=== PATIENT | female | born 1990 | race Caucasian/White ===

== ENCOUNTER → 2017-04-12 | Outpatient (CLI) | payer BC ==
[~2017-04-12] MED LIST: BIRTH CONTROL PO
--- NOTE | 2017-04-12 17:22 | Diagnostic Imaging Report ---
INDICATION: Anatomic survey. TECHNIQUE: Multiple real-time grayscale images were obtained over the gravid uterus. COMPARISON: None FINDINGS: A single live intrauterine fetus is seen measuring at 21 weeks 2 days in size. Amniotic fluid is qualitatively normal. Placenta is anterior with no evidence of previa. heart rate is 144 beats per minute. Cervical length is 4.4 cm. survey showed no detectable abnormalities, although a good four-chamber heart view could not be obtained due to position. Biometrical measurements are as follows: Biparietal 5.09 cm, age 21 weeks 3 days. Head circumference 18.69 cm, age 21 weeks 1 days. Abdominal circumference 16.56 cm, age 21 weeks 5 days. Femur length 3.43 cm, age 20 weeks 6 days. Sonographic estimate age: 21 weeks 2 days. Sonographic estimated date of delivery: 08/21/2017. Estimated Weight: 408 gm (+/- 60 gm). LMP percentile: 86%. heart rate: 144 beats per minute. number: 1 of 1. IMPRESSION: Single live intrauterine fetus measuring 21 weeks 2 days in size, as described above. There was no detectable abnormality, although a good four-chamber heart view was not obtainable due to position. Consider followup as clinically warranted. Dictated by: Dictated on workstation # [id number]
== END ==
LOC: RAD 16:06
PROVIDERS: ATTEND Obstetrics & Gynecology
DX: Z36.87 Encounter for antenatal screening for uncertain dates (principal); Z3A.21 21 weeks gestation of pregnancy
CPT/HCPCS: 76805

== ENCOUNTER 2017-08-28 12:38 | Inpatient (IN) | payer BC ==
[2017-08-28] VITALS (50 sets, daily range): BP systolic 113–172; BP diastolic 62–104
[~2017-08-28] VITALS: Ht 165.1 cm; Wt 81.6 kg
[2017-08-28 13:18] LABS: BILIRUBIN,URINE NEGATIVE (NEGATIVE); CLARITY,URINE SLIGHTLY CLOUDY; COLOR,URINE YELLOW; GLUCOSE, URINE (UA) NEGATIVE (NEGATIVE); KETONES,URINE NEGATIVE (NEGATIVE); LEUKOCYTE ESTERASE ,URINE 2+ (NEGATIVE); NITRITE,URINE NEGATIVE (NEGATIVE); PH,URINE 6.5 (5-9); PROTEIN,URINE NEGATIVE (NEGATIVE); UROBILINOGEN,URINE NORMAL (NORMAL)
[2017-08-28 13:25] LABS: BASOPHILS % (AUTO) 0 % (0-10); EOSINOPHILS % (AUTO) 0 % (0-10); HEMATOCRIT 34 % (35-52); HEMOGLOBIN 12.5 G/DL (11.5-16.0); LYMPHOCYTES % (AUTO) 16 % (12-44); MEAN CORPUSCULAR HEMOGLOBIN 33 PG (25-34); MEAN CORPUSCULAR HGB CONC 36 G/DL (32-36); MEAN CORPUSCULAR VOLUME 90 FL (80-99); MEAN PLATELET VOLUME 11.7 FL (7.4-10.4); MONOCYTES # (AUTO) 0.7 X 10^3 (0.0-1.0); MONOCYTES % (AUTO) 5 % (0-12); NEUTROPHILS # (AUTO) 9.4 X 10^3 (1.8-7.8); NEUTROPHILS % (AUTO) 78 % (42-75); PLATELET COUNT 162 10^3/uL (130-400); RED BLOOD COUNT 3.81 10^6/uL (4.35-5.85); RED CELL DISTRIBUTION WIDTH 12.2 % (10.0-14.5)
[2017-08-28 13:42] LABS: URINE CREATININE FOR RATIO 32 MG/DL (30-125); URINE PROTEIN FOR RATIO ONLY < 6 MG/DL (6-12)
[2017-08-28 13:44] LABS: ALANINE AMINOTRANSFERASE 8 U/L (0-55); ALBUMIN 3.3 GM/DL (3.2-4.5); ALKALINE PHOSPHATASE 173 U/L (40-136); BILIRUBIN,TOTAL 0.7 MG/DL (0.1-1.0); BUN/CREATININE RATIO 10; CALCIUM 9.1 MG/DL (8.5-10.1); CARBON DIOXIDE 20 MMOL/L (21-32); CHLORIDE 107 MMOL/L (98-107); GFR ESTIMATED > 60; POTASSIUM 4.1 MMOL/L (3.6-5.0); SODIUM 137 MMOL/L (135-145); TOTAL PROTEIN 6.2 GM/DL (6.4-8.2); URIC ACID 6.3 MG/DL (2.6-7.2)
[2017-08-28 13:48] LABS: GLUCOSE 60 MG/DL (70-105)
[2017-08-28 13:58] LABS: BACTERIA,URINE NEGATIVE /HPF
[2017-08-28] MEDS ORDERED: OXYTOCIN/NORMAL SALINE 500 ML IV SCH (14:36)
[2017-08-28] MEDS: D5 LR IV SOLUTION 1,000 ML IV SCH ×2 (14:50→19:20)
[2017-08-28] MEDS ORDERED: PREN1TAB86 PO (16:12)
[2017-08-28] MEDS ORDERED: TERBUTALINE INJ 1 MG/ML (BRETHINE) AMP ONE (17:31)
[2017-08-28] MEDS: LACTATED RINGERS 1,000 ML IV SCH (17:52)
[2017-08-28] MEDS ORDERED: SUFENTA 0.6MCG/ML BUPIVA 0.125 100 ML ONE ×2 (17:56→18:31)
[2017-08-28] MEDS ORDERED: ONDANSETRON 4 MG/2 ML (SDV) Z0FRAN IVP PRN (18:00)
[2017-08-28] MEDS ORDERED: BUPIVACAINE 0.25% 30 ML (SENSORCAINE) VIAL ONE (18:30)
[2017-08-28] MEDS ORDERED: LIDOCAINE PF 2% 5 ML (XYLOCAINE) VIAL ONE (18:30)
[2017-08-28] MEDS ORDERED: fentaNYL INJECTION 100 MCG/2 ML AMP ONE (18:31)
[2017-08-28] MEDS ORDERED: TERBUTALINE INJ 1 MG/ML (BRETHINE) AMP SC ONE (18:31)
[2017-08-28] MEDS ORDERED: NALOXONE 0.4 MG/ML 1 ML (NARCAN) VIAL IV PRN (19:00)
[2017-08-28] MEDS: EPIDURAL (SUFENTA 0.6MCG/ML BUPIVA 0.125%) 100 ML BAG EPI PRN (19:00)
[2017-08-28] MEDS ORDERED: ONDANSETRON 4 MG/2 ML (SDV) Z0FRAN IV PRN (19:00)
[2017-08-28] MEDS ORDERED: diphenhydrAMINE 50 MG/ML INJ (BENADRYL) IV PRN (19:00)
[2017-08-29] VITALS (35 sets, daily range): BP systolic 117–157; BP diastolic 67–99
[2017-08-29] MEDS: EPIDURAL (SUFENTA 0.6MCG/ML BUPIVA 0.125%) 100 ML BAG EPI PRN ×2 (01:10→05:57)
[2017-08-29] MEDS: D5 LR IV SOLUTION 1,000 ML IV SCH ×3 (03:10→22:55)
[2017-08-29] MEDS ORDERED: ceFAZolin 2 GM IV Premixed 50 ML ONE (05:54)
[2017-08-29] MEDS ORDERED: METOCLOPRAMIDE INJ 10 MG/2 ML (REGLAN) ONE (05:54)
[2017-08-29] MEDS ORDERED: FAMOTIDINE 20MG/2ML IV (PEPCID) ONE (05:54)
[2017-08-29] MEDS ORDERED: CITRIC ACID/SOB CIT (BICITRA) 30 ML UDC ONE (05:54)
[2017-08-29] MEDS: LACTATED RINGERS 1,000 ML IV SCH ×2 (06:02→07:57)
[2017-08-29] MEDS ORDERED: TERBUTALINE INJ 1 MG/ML (BRETHINE) AMP ONE (06:07)
[2017-08-29] MEDS ORDERED: LIDOCAINE PF 2% 5 ML (XYLOCAINE) VIAL ONE (06:18)
[2017-08-29] MEDS ORDERED: fentaNYL INJECTION 100 MCG/2 ML AMP ONE (06:18)
[2017-08-29] MEDS ORDERED: BUPIVACAINE 0.5% 30 ML (SENSORCAINE) VIAL ONE (06:18)
--- NOTE | 2017-08-29 06:18 | History & Physical-OB ---
OB - Chief Complaint & HPI Date/Time Date of Admission: Date of Admission: Aug 28, 2017 at 2:36 pm Time Seen by Provider: 15:30 Chief Complaint/History OB-Reason for Admission/Chief: Induction of Labor Hx : 1 Hx Para: 0 Expected Date of Delivery: Aug 27, 2017 Gestational Age in Weeks: 40 Gestational Age in Days: 2 Other reason for admission: GHTN, Postdates Admission Nurse Assessment Rev: Yes History of Labs O pos Antibody neg RI RPR NR HBsAg NR HIV NR GC neg GBS neg Allergies and Home Medications Allergies Coded Allergies: No Known Drug Allergies (Unverified , 02/08/11) Home Medications Vit W-Ca,Fe,FA(<1 mg) 1 Each Tablet, 1 TAB PO DAILY, (Reported) OB - History Hx of Present Care: Yes Ultrasounds: Normal mid trimester US Obstetrical Complications: None Medical Complications: None Obstetrical History Hx : 1 Hx Para: 0 Delivery History Adverse Rxn to Tranfusion: No Patient Past Medical History n/a Social History/Family History Recent Infectious Disease Expo: No Alcohol Use: Denies Use Recreational Drug Use: No OB - Admission Exam Physical Exam Vitals: Vital Signs 08/29/17 08/29/17 08/29/17 00:00 03:00 04:45 Temp 99.6 Pulse 89 Resp 20 B/P (MAP) 156/79 (104) Pulse Ox 99 O2 Delivery Room Air O2 Flow Rate 15.00 HEENT: NCAT Heart: Rhythm Normal Lungs: Clear Abdomen: Gravid Extremities: Normal Reflexes: Normal Cervical Dilatation: 2cm Effacement: 75% Station: -1 Membranes: Intact Heart Rate: 130's Accelerations: Accelerations Present Decelerations: No Decelerations Short Term Variability: Present Machinery Dismantler Variability: Average (6-25) Contractions on Admission: 6-10 Minutes Apart Intensity: Moderate Labs Laboratory Tests Test 08/28/17 13:10 08/28/17 13:20 Range/Units Urine Color YELLOW Urine Clarity SLIGHTLY CLOUDY Urine pH 6.5 5-9 Urine Specific [place] 1.005 L 1.016-1.022 Urine Protein < 6 L 6-12 MG/DL Urine Glucose (UA) NEGATIVE NEGATIVE Urine Ketones NEGATIVE NEGATIVE Urine Nitrite NEGATIVE NEGATIVE Urine Bilirubin NEGATIVE NEGATIVE Urine Urobilinogen NORMAL NORMAL MG/DL Urine Leukocyte Esterase 2+ H NEGATIVE Urine RBC (Auto) 4+ H NEGATIVE Urine RBC NONE /HPF Urine WBC 5-10 H /HPF Urine Squamous Epithelial Cells 10-20 /HPF Urine Crystals NONE /LPF Urine Bacteria NEGATIVE /HPF Urine Casts NONE /LPF Urine Mucus NEGATIVE /LPF Urine Culture Indicated YES Urine Creatinine 32 30-125 MG/DL Urine Protein/Creatinine Ratio White Blood Count 12.0 H 4.3-11.0 10^3/uL Red Blood Count 3.81 L 4.35-5.85 10^6/uL Hemoglobin 12.5 11.5-16.0 G/DL Hematocrit 34 L 35-52 % Mean Corpuscular Volume 90 80-99 FL Mean Corpuscular Hemoglobin 33 25-34 PG Mean Corpuscular Hemoglobin Concent 36 32-36 G/DL Red Cell Distribution Width 12.2 10.0-14.5 % Platelet Count 162 130-400 10^3/uL Mean Platelet Volume 11.7 H 7.4-10.4 FL Neutrophils (%) (Auto) 78 H 42-75 % Lymphocytes (%) (Auto) 16 12-44 % Monocytes (%) (Auto) 5 0-12 % Eosinophils (%) (Auto) 0 0-10 % Basophils (%) (Auto) 0 0-10 % Neutrophils # (Auto) 9.4 H 1.8-7.8 X 10^3 Lymphocytes # (Auto) 2.0 1.0-4.0 X 10^3 Monocytes # (Auto) 0.7 0.0-1.0 X 10^3 Eosinophils # (Auto) 0.0 0.0-0.3 10^3/uL Basophils # (Auto) 0.0 0.0-0.1 10^3/uL Sodium Level 137 135-145 MMOL/L Potassium Level 4.1 3.6-5.0 MMOL/L Chloride Level 107 98-107 MMOL/L Carbon Dioxide Level 20 L 21-32 MMOL/L Anion Gap 10 5-14 MMOL/L Blood Urea Nitrogen 8 7-18 MG/DL Creatinine 0.80 0.60-1.30 MG/DL Estimat Glomerular Filtration Rate > 60 BUN/Creatinine Ratio 10 Glucose Level 60 *L 70-105 MG/DL Uric Acid 6.3 2.6-7.2 MG/DL Calcium Level 9.1 8.5-10.1 MG/DL Total Bilirubin 0.7 0.1-1.0 MG/DL Aspartate Amino Transf (AST/SGOT) 13 5-34 U/L Alanine Aminotransferase (ALT/SGPT) 8 0-55 U/L Alkaline Phosphatase 173 H 40-136 U/L Total Protein 6.2 L 6.4-8.2 GM/DL Albumin 3.3 3.2-4.5 GM/DL OB - Assessment/Plan/Diagnosis Assessment Assessment: induction of labor Plan Plan: Induction Induction Method: per Pitocin Protocol Other Plan Plan for induction with Pitocin and possibly cervical ripen overnight if not a good response, or AROM later if good labor pattern ensues. Anticipate NVD. Discharge Diagnosis Diagnosis: 27 yo @ 40.1 GHTN-transient Postdates GBS neg HUMBERTO FLORES DO Aug 29, 2017 6:18 am
[2017-08-29] MEDS ORDERED: LACTATED RINGERS 1,000 ML IV PRN (06:21)
--- NOTE | 2017-08-29 06:23 | Progress Note-Standard ---
Standard Progress Note Progress Notes/Assess & Plan Date Seen by Provider: Aug 29, 2017 Time Seen by Provider: 06:05 Progress/Assessment & Plan Notified by RN that patient had been starting to have variable decels. Progressed to 5 cm, but variability had been worsening and now has begun having repetitive variable decels some into the 50s-60. Also a 6 min decel yesterday afternoon into the 40s at which time AROM and FSE was placed. I discussed with the patient intolerance of labor, and that proceeding with for delivery urgently would be the safest course to proceed with at this point due to her being remote from delivery. Risk discussed with patient, , and family. Will proceed with KELLY. HUMBERTO FLORES DO Aug 29, 2017 6:23 am
[2017-08-29] MEDS ORDERED: CITRIC ACID/SOB CIT (BICITRA) 30 ML UDC PO ONE (06:30)
[2017-08-29] MEDS ORDERED: METOCLOPRAMIDE INJ 10 MG/2 ML (REGLAN) IV ONE (06:30)
[2017-08-29] MEDS ORDERED: FAMOTIDINE 20MG/2ML IV (PEPCID) IV ONE (06:30)
[2017-08-29] MEDS ORDERED: OXYTOCIN/NORMAL SALINE 500 ML IV SCH (06:33)
[2017-08-29] MEDS ORDERED: MEASLES,MUMPS,RUBELLA 1 EA INJ SC SCH (06:45)
[2017-08-29] MEDS ORDERED: IBUPROFEN 600 MG (MOTRIN) TAB PO SCH (06:45)
[2017-08-29] MEDS ORDERED: ONDANSETRON 4 MG/2 ML (SDV) Z0FRAN IVP PRN (06:45)
[2017-08-29] MEDS ORDERED: TETANUS,DIPTH,PERTUSS P/F (BOOSTRIX) 0.5 ML VIAL IM SCH (06:45)
[2017-08-29] MEDS ORDERED: PHENYLEPHRINE 100 MCG/ML 10 ML (ANESTHESIA) SYR ONE (07:07)
[2017-08-29] MEDS ORDERED: OXYTOCIN/NORMAL SALINE 1,000 ML IV ONE (07:13)
[2017-08-29] MEDS ORDERED: MIDAZOLAM 2 MG/2 ML (VERSED) VIAL ONE (07:15)
[2017-08-29] MEDS ORDERED: ceFAZolin 2 GM IV Premixed 50 ML IV ONE (07:15)
[2017-08-29] MEDS ORDERED: INFLUENZA TRIvalent 2017-2018 0.5 ML/45 MCG SYR IM ONE (08:15)
[2017-08-29] MEDS: HYDROmorphone (DILAUDID) 2 MG/ML VIAL IVP PRN ×2 (08:31→10:54)
[2017-08-29] MEDS ORDERED: CARBOPROST (HEMABATE) 250 MCG/ML AMP IM ONE (08:38)
[2017-08-29] MEDS ORDERED: CARBOPROST (HEMABATE) 250 MCG/ML AMP IM NR (08:45)
[2017-08-29 12:06] LABS: BASOPHILS % (AUTO) 0 % (0-10); EOSINOPHILS % (AUTO) 0 % (0-10); HEMATOCRIT 26 % (35-52); HEMOGLOBIN 9.2 G/DL (11.5-16.0); LYMPHOCYTES # (AUTO) 1.3 X 10^3 (1.0-4.0); LYMPHOCYTES % (AUTO) 6 % (12-44); MEAN CORPUSCULAR HEMOGLOBIN 33 PG (25-34); MEAN CORPUSCULAR HGB CONC 36 G/DL (32-36); MEAN CORPUSCULAR VOLUME 92 FL (80-99); MEAN PLATELET VOLUME 11.4 FL (7.4-10.4); MONOCYTES % (AUTO) 5 % (0-12); NEUTROPHILS # (AUTO) 19.7 X 10^3 (1.8-7.8); NEUTROPHILS % (AUTO) 89 % (42-75); PLATELET COUNT 136 10^3/uL (130-400); RED CELL DISTRIBUTION WIDTH 11.9 % (10.0-14.5); WHITE BLOOD COUNT 22.1 10^3/uL (4.3-11.0)
[2017-08-29] MEDS: KETOROLAC 30 MG/ML VIAL IVP SCH ×2 (13:29→20:10)
--- NOTE | 2017-08-29 14:16 | OPERATIVE REPORT ---
DATE OF SERVICE: 08/28/2017 PREOPERATIVE DIAGNOSES: 1. A 27-year-old G1, P0 at 40 weeks and 1 day gestation. 2. intolerance of labor. 3. Remote from delivery. POSTOPERATIVE DIAGNOSES: 1. A 27-year-old G1, P0 at 40 weeks and 1 day gestation. 2. intolerance of labor. 3. Remote from delivery. PROCEDURE: Primary low transverse section. SURGEON: Dr. Fernando Morton. ANESTHESIA: Epidural, which was bolused. ESTIMATED BLOOD LOSS: 1500 mL. URINE OUTPUT: 1000 mL cleared at the end of the procedure. FLUIDS: 2400 mL of lactated Ringer solution. FINDINGS: A live male , weight pending with Apgars of 5 and 9. Grossly normal appearing. uterus, bilateral fallopian tubes and ovaries. SPECIMEN SENT: Placenta. INDICATIONS FOR PROCEDURE: This 27-year-old female was admitted yesterday with questionable blood pressures in the 150s/90s that were labile would drop to the 130s/80s at times. Due to postdates, a decision was made to proceed with induction. The method of induction was selected at that point due to the early afternoon was Pitocin augmentation, which the patient did start yennifer fairly regularly too. She had an episode of tachy systole followed by a 4 to 5 minute prolonged deceleration down into the 60s, which came back up to baseline. After this Pitocin was stopped, AROM was performed and internal scalp lead was placed. The patient received an epidural shortly thereafter as her blood pressures began to creep up a little bit higher in the 160s/90s. Pitocin was then begun again once reassurance was noted due to the patient being remote from delivery and because of recurrent heart racing concerns. RECOMMENDATION: Was made to proceed with delivery. At that time, she was 5 cm, 80% effaced, -1 station. Risk of the procedure was discussed with the patient in detail, with her family and her present. Risk of bleeding, infection, damage to surrounding structures, including, but not limited to bowel, bladder, ureter, kidneys, risk for possible blood transfusion, risk for possible loss of fertility and subsequent procedures were all discussed with the patient as well as risks of the infant. After all questions were answered, consent was obtained, the patient was taken to the operating room. Once in the operating room, epidural anesthesia was bolused and found to be adequate. She was placed in supine position with a leftward tilt, prepped and draped in normal sterile fashion. Pfannenstiel skin incision was made with a knife and carried to underlying fascia using Bovie cautery. The fascial incision extended laterally using Bovie cautery. Superior aspect of the fascial incision was then grasped with Chon clamps and opened, dissected off the rectus muscle. The inferior aspect of the fascial incision was then grasped with Chon clamps, tented upward and dissected off the underlying rectus muscles. The rectus muscle was dissected down the midline using Mack scissors, which exposed the peritoneum, which I entered bluntly and extended using blunt traction. An Cesar ring retractor was placed in the peritoneal incision, which offers excellent lateral sidewall retraction. There is a darkening of the serosa in the lower uterine segment suspicious for possible abruption or hematoma formation in the lower uterine segment. I make an incision in the vesicouterine peritoneum and bluntly dissect the serosa off of the lower uterine segment, the bladder flap. I proceeded with myotomy until membranes are visualized at which point, I ruptured membranes through my incision using digital dissection and extend the incision using Mack scissors laterally and superiorly. The was found in the vertex presentation. At this point, the infant's head is well engaged approximately zero maybe even +1 station. The is occiput posterior. I placed my hand beneath the infant's head and able to elevate it up out of the incision. There was some struggle with doing this, but I was able to with slow movement of the head, able to get it out of the pelvis and up to the incision. Once the infant's headed up to the incision, it was delivered through the incision without difficulty and the nares and oropharynx were bulb suctioned. Anterior, posterior shoulder was delivered. was then brought to the operative field with the cord was duly clamped and cut and the infant is handed off to waiting Dr. Renteria who was in attendance for delivery. Cord blood was collected. A 3-vessel cord with intact placenta was delivered spontaneously. Thereafter IV Pitocin was initiated to facilitate uterine contraction. Uterine fundus was firm by manual massage. The uterus was then exteriorized and cleared of all endometrial clots and debris. There is extension of the lateral aspect of the uterine incision around to the posterior aspect of the uterus laterally through the posterior leaflet of the broad ligament on the right side even. I proceeded with closing the uterine incision using 0 Vicryl suture in running locked fashion. This closure has to extend laterally and even posteriorly on the patient's right side due to the extension; however, there is no active bleeding noted from the incision after the running locked suture was placed. A second layer of imbricating 0 Monocryl was placed and excellent hemostasis is noted after doing this. I then placed a separate layer of 3-0 Vicryl suture on the posterior aspect of the extension that I had the access by lifting the uterus up and going into the posterior cul-de-sac. This is believed to be a cervical extension, but it is closed using 3-0 Vicryl suture in running locked fashion after which no active bleeding noted from this; however, I did copiously irrigate the posterior cul-de-sac using normal saline and then placed Surgicel over this incision to ensure postoperative hemostasis. I then placed the uterus back in the pelvis and copiously irrigated the pelvis using normal saline. No active bleeding noted from the anterior aspect of the incision. I then placed intercede over my low transverse incision and removed the Cesar ring retractor and then closed the peritoneum using 3-0 Vicryl stitch running fashion. The rectus muscle was reapproximated using 3-0 Vicryl suture in interrupted fascia. The fascia was reapproximated using 0 Vicryl suture in running fashion. The subcutaneous tissue reapproximated using 3-0 plain in interrupted subcutaneous stitch and skin reapproximated using 4-0 Monocryl running subcuticular. Dermabond was applied to incision. Sterile dressing with adhesive white tape. The patient tolerated the procedure well and sent to recovery area in stable condition with lap and sponge counts were correct at the end of the procedure. Instrument counts were correct as well. Two grams of Ancef were given preoperatively for infection prophylaxis, 1 gram is going to be given 8 hours postoperatively due to increased blood loss of over a liter. The patient tolerated the procedure well and sent to recovery in stable condition. Job ID: [id number] DocumentID: [id number] Dictated Date: 08/29/2017 07:46:55 Pharmacy Cashier Date: 08/29/2017 14:15:16 Dictated By: DO KELY DAMICO
[2017-08-29] MEDS: HYDROcodone/APAP 5 MG/325 MG (LORTAB) TAB PO PRN ×2 (14:53→20:11)
[2017-08-29] MEDS ORDERED: ceFAZolin INJECTION 1,000 MG in NS (IVPB) 50 ML IV ONE (16:00)
[2017-08-29 18:53] LABS: MEAN PLATELET VOLUME 11.2 FL (7.4-10.4); RED BLOOD COUNT 2.44 10^6/uL (4.35-5.85); WHITE BLOOD COUNT 19.3 10^3/uL (4.3-11.0)
[2017-08-29] MEDS: CATHETER FLUSH 10 ML SYR IV SCH ×4 (20:11→22:56)
[2017-08-29] MEDS: DOCUSATE SODIUM 100 MG (COLACE) CAP PO SCH ×2 (20:11→22:51)
[2017-08-29] MEDS ORDERED: IBUP-1773 PO (22:21)
[2017-08-29] MEDS ORDERED: ACHD5005 PO (22:21)
[2017-08-29] MEDS ORDERED: FERR325T18 PO (22:21)
[2017-08-29] MEDS ORDERED: DOCU100C37 PO (22:21)
--- NOTE | 2017-08-29 22:22 | Discharge Inst-Women's Service ---
Discharge Inst-Women's Serv Depart Medication/Instructions New, Converted or Re-Newed RX: RX on Chart Consults/Follow Up Additional Follow Up: Yes Orders/Referrals Dr. Morton in 7-10 days and in 6 weeks Activity Activity: Activity as Tolerated Driving Instructions: No Driving for 1 Week NO SMOKING: NO SMOKING Nothing Inside Vagina: No Douching, No Tonsina, No Tampons Diet Discharge Diet: No Restrictions Symptoms to Report to : Bleeding Excessive, Pain Increased, Fever Over 101 Degrees F, Vaginal Bleeding Increase, Questions/Concerns For Any Problems or Questions: Contact Your Physician Skin/Wound Care Infection Signs and Symptoms: Increased Redness, Foul Odor of Wound, Increased Drainage, Skin Itchy or Has a Rash, Increased Swelling, Temperature Above 101 F Operative Area Clean and Dry: Keep Incision Clean/Dry Stitches/Reid/Dermabond: Dermabond, Care of Stitches Bathing Instructions: HUMBERTO Sheth DO Aug 29, 2017 10:22 pm
[2017-08-30] VITALS: BP 128/82
[2017-08-30] MEDS: KETOROLAC 30 MG/ML VIAL IVP SCH (01:43)
[2017-08-30] MEDS: CATHETER FLUSH 10 ML SYR IV SCH (01:43)
[2017-08-30] MEDS: HYDROcodone/APAP 5 MG/325 MG (LORTAB) TAB PO PRN ×3 (01:43→18:33)
[2017-08-30 04:35] VITALS: BP 129/82
[2017-08-30 06:02] LABS: BASOPHILS % (AUTO) 0 % (0-10); EOSINOPHILS % (AUTO) 0 % (0-10); HEMATOCRIT 22 % (35-52); HEMOGLOBIN 7.5 G/DL (11.5-16.0); LYMPHOCYTES % (AUTO) 12 % (12-44); MEAN CORPUSCULAR HEMOGLOBIN 33 PG (25-34); MEAN CORPUSCULAR HGB CONC 35 G/DL (32-36); MEAN CORPUSCULAR VOLUME 94 FL (80-99); MEAN PLATELET VOLUME 11.5 FL (7.4-10.4); MONOCYTES # (AUTO) 0.6 X 10^3 (0.0-1.0); MONOCYTES % (AUTO) 4 % (0-12); NEUTROPHILS # (AUTO) 14.3 X 10^3 (1.8-7.8); NEUTROPHILS % (AUTO) 84 % (42-75); PLATELET COUNT 114 10^3/uL (130-400); RED BLOOD COUNT 2.31 10^6/uL (4.35-5.85); RED CELL DISTRIBUTION WIDTH 12.2 % (10.0-14.5)
--- NOTE | 2017-08-30 07:27 | Anesthesia-Regional Post-Op ---
Regional Patient Condition Mental Status: Alert, Oriented x3 Circulation: Same as Pre-Op Headache: Absent Sensation: Full Recovery Motor Block: Absent Post Op Complications Complications None Follow Up Care/Instructions Patient Instructions None needed. Anesthesia/Patient Condition Patient is doing well, no complaints, stable vital signs, no apparent adverse anesthesia problems. No complications reported per nursing. TIM SYED CRNA Aug 30, 2017 07:27
[2017-08-30] MEDS: DOCUSATE SODIUM 100 MG (COLACE) CAP PO SCH ×2 (07:40→21:03)
[2017-08-30] MEDS: IBUPROFEN 600 MG (MOTRIN) TAB PO SCH ×3 (07:40→22:31)
[2017-08-30] MEDS: FERROUS SULF 325 MG (IRON) TAB PO SCH ×3 (07:41→21:03)
[2017-08-30 07:42] VITALS: BP 135/87
--- NOTE | 2017-08-30 08:48 | Postpartum Progress Note ---
Note Note Day # 1 Subjective: Patient is without complaints. Ambulating, voiding. Tolerating a regular diet without nausea or vomiting. Normal lochia. Pain is well controlled with oral pain medications. Objective: Vital Sign - Last 24 Hours 08/29/17 08/29/17 08/29/17 08/29/17 09:00 09:15 09:30 11:00 Temp 100.8 99.4 100.3 99.4 Pulse 120 118 110 107 Resp 20 18 18 18 B/P (MAP) 126/92 (103) 134/84 (101) 131/74 (93) 138/79 (98) Pulse Ox 96 96 97 95 O2 Delivery Room Air Room Air Room Air Room Air 08/29/17 08/29/17 08/29/17 08/29/17 11:45 14:30 16:30 20:00 Temp 99.7 98.9 98.3 99.6 Pulse 108 117 105 119 Resp 18 18 18 18 B/P (MAP) 138/82 (100) 117/73 (88) 128/72 (90) 129/86 (100) Pulse Ox 96 97 98 98 O2 Delivery Room Air Room Air Room Air Room Air 08/30/17 08/30/17 08/30/17 00:00 04:35 07:42 Temp 97.9 97.2 97.9 Pulse 102 98 104 Resp 18 18 20 B/P (MAP) 128/82 (97) 129/82 (98) 135/87 (103) Pulse Ox 99 98 97 O2 Delivery Room Air Room Air Room Air Intake and Output 08/29/17 08/29/17 08/30/17 14:59 22:59 06:59 Intake Total 500 ml 1500 ml 600 ml Output Total 1260 ml 1225 ml 1800 ml Balance -760 ml 275 ml -1200 ml Laboratory Tests Test 08/29/17 11:59 08/29/17 18:45 08/30/17 05:10 Range/Units White Blood Count 22.1 H 19.3 H 17.0 H 4.3-11.0 10^3/uL Red Blood Count 2.80 L 2.44 L 2.31 L 4.35-5.85 10^6/uL Hemoglobin 9.2 #L 8.0 L 7.5 L 11.5-16.0 G/DL Hematocrit 26 L 23 L 22 L 35-52 % Mean Corpuscular Volume 92 92 94 80-99 FL Mean Corpuscular Hemoglobin 33 33 33 25-34 PG Mean Corpuscular Hemoglobin Concent 36 36 35 32-36 G/DL Red Cell Distribution Width 11.9 12.0 12.2 10.0-14.5 % Platelet Count 136 128 L 114 L 130-400 10^3/uL Mean Platelet Volume 11.4 H 11.2 H 11.5 H 7.4-10.4 FL Neutrophils (%) (Auto) 89 H 84 H 42-75 % Lymphocytes (%) (Auto) 6 L 12 12-44 % Monocytes (%) (Auto) 5 4 0-12 % Eosinophils (%) (Auto) 0 0 0-10 % Basophils (%) (Auto) 0 0 0-10 % Neutrophils # (Auto) 19.7 H 14.3 H 1.8-7.8 X 10^3 Lymphocytes # (Auto) 1.3 2.0 1.0-4.0 X 10^3 Monocytes # (Auto) 1.0 0.6 0.0-1.0 X 10^3 Eosinophils # (Auto) 0.0 0.0 0.0-0.3 10^3/uL Basophils # (Auto) 0.0 0.0 0.0-0.1 10^3/uL Physical Exam: General - Alert and oriented, no apparent distress Abdomen - Soft, appropriately tender to palpation, non-distended, fundus firm at umbilicus Extremities - no edema, negative Barbra's bilaterally Incision - c/d/i Assessment: POD 1 PLTCS - with uterine incision avulsion involving bilateral uterine arteries Acute blood loss anemia Plan: Routine care. Encourage breast feeding. Encourage ambulation. Ferrous sulfate supplementation. Plan for discharge tomorrow if stable Vitals - Labs Vital Signs - I&O Vital Signs Date Time Temp Pulse Resp B/P (MAP) Pulse Ox O2 Delivery O2 Flow Rate FiO2 08/30/17 07:42 97.9 104 20 135/87 (103) 97 Room Air 08/30/17 04:35 97.2 98 18 129/82 (98) 98 Room Air 08/30/17 00:00 97.9 102 18 128/82 (97) 99 Room Air 08/29/17 20:00 99.6 119 18 129/86 (100) 98 Room Air 08/29/17 16:30 98.3 105 18 128/72 (90) 98 Room Air 08/29/17 14:30 98.9 117 18 117/73 (88) 97 Room Air 08/29/17 11:45 99.7 108 18 138/82 (100) 96 Room Air 08/29/17 11:00 99.4 107 18 138/79 (98) 95 Room Air 08/29/17 09:30 100.3 110 18 131/74 (93) 97 Room Air 08/29/17 09:15 99.4 118 18 134/84 (101) 96 Room Air 08/29/17 09:00 100.8 120 20 126/92 (103) 96 Room Air I & O 08/30/17 06:59 Intake Total 2600 ml Output Total 4285 ml Balance -1685 ml Labs Laboratory Tests 08/29/17 11:59: White Blood Count 22.1H, Red Blood Count 2.80L, Hemoglobin 9.2#L, Hematocrit 26L , Mean Corpuscular Volume 92, Mean Corpuscular Hemoglobin 33, Mean Corpuscular Hemoglobin Concent 36, Red Cell Distribution Width 11.9, Platelet Count 136, Mean Platelet Volume 11.4H, Neutrophils (%) (Auto) 89H, Lymphocytes (%) (Auto) 6L, Monocytes (%) (Auto) 5, Eosinophils (%) (Auto) 0, Basophils (%) (Auto) 0, Neutrophils # (Auto) 19.7H, Lymphocytes # (Auto) 1.3, Monocytes # (Auto) 1.0, Eosinophils # (Auto) 0.0, Basophils # (Auto) 0.0 08/29/17 18:45: White Blood Count 19.3H, Red Blood Count 2.44L, Hemoglobin 8.0L, Hematocrit 23L , Mean Corpuscular Volume 92, Mean Corpuscular Hemoglobin 33, Mean Corpuscular Hemoglobin Concent 36, Red Cell Distribution Width 12.0, Platelet Count 128L, Mean Platelet Volume 11.2H 08/30/17 05:10: White Blood Count 17.0H, Red Blood Count 2.31L, Hemoglobin 7.5L, Hematocrit 22L , Mean Corpuscular Volume 94, Mean Corpuscular Hemoglobin 33, Mean Corpuscular Hemoglobin Concent 35, Red Cell Distribution Width 12.2, Platelet Count 114L, Mean Platelet Volume 11.5H, Neutrophils (%) (Auto) 84H, Lymphocytes (%) (Auto) 12, Monocytes (%) (Auto) 4, Eosinophils (%) (Auto) 0, Basophils (%) (Auto) 0, Neutrophils # (Auto) 14.3H, Lymphocytes # (Auto) 2.0, Monocytes # (Auto) 0.6, Eosinophils # (Auto) 0.0, Basophils # (Auto) 0.0 Microbiology 08/28/17 Urine Culture - Preliminary, HUMBERTO Looney DO Aug 30, 2017 8:48 am
[2017-08-30 12:04] VITALS: BP 125/80
[2017-08-30 16:19] VITALS: BP 132/92
[2017-08-30 22:00] VITALS: BP 134/91
[2017-08-31] MEDS: HYDROcodone/APAP 5 MG/325 MG (LORTAB) TAB PO PRN ×2 (01:56→13:18)
[2017-08-31 02:00] VITALS: BP 124/84
[2017-08-31] MEDS: IBUPROFEN 600 MG (MOTRIN) TAB PO SCH ×2 (05:36→12:18)
[2017-08-31] MEDS: CATHETER FLUSH 10 ML SYR IV SCH (05:36)
[2017-08-31 06:08] LABS: BASOPHILS % (AUTO) 0 % (0-10); EOSINOPHILS # (AUTO) 0.1 10^3/uL (0.0-0.3); EOSINOPHILS % (AUTO) 1 % (0-10); LYMPHOCYTES # (AUTO) 2.7 X 10^3 (1.0-4.0); LYMPHOCYTES % (AUTO) 17 % (12-44); MEAN CORPUSCULAR HEMOGLOBIN 32 PG (25-34); MEAN CORPUSCULAR HGB CONC 34 G/DL (32-36); MEAN CORPUSCULAR VOLUME 94 FL (80-99); MEAN PLATELET VOLUME 11.1 FL (7.4-10.4); MONOCYTES # (AUTO) 0.7 X 10^3 (0.0-1.0); MONOCYTES % (AUTO) 5 % (0-12); NEUTROPHILS # (AUTO) 12.2 X 10^3 (1.8-7.8); NEUTROPHILS % (AUTO) 78 % (42-75); PLATELET COUNT 144 10^3/uL (130-400); RED BLOOD COUNT 2.16 10^6/uL (4.35-5.85); RED CELL DISTRIBUTION WIDTH 12.4 % (10.0-14.5); WHITE BLOOD COUNT 15.7 10^3/uL (4.3-11.0)
[2017-08-31 06:20] LABS: HEMATOCRIT 21 % (35-52)
[2017-08-31 08:45] VITALS: BP 124/78
[2017-08-31] MEDS: DOCUSATE SODIUM 100 MG (COLACE) CAP PO SCH (08:50)
[2017-08-31] MEDS: FERROUS SULF 325 MG (IRON) TAB PO SCH ×2 (08:50→13:18)
--- NOTE | 2017-08-31 08:51 | Postpartum Progress Note ---
Note Note Day # 2 Subjective: Patient is without complaints. Ambulating, voiding. Tolerating a regular diet without nausea or vomiting. Normal lochia. Pain is well controlled with oral pain medications. . Denies lightheadedness or dizzyness. Objective: Vital Sign - Last 24 Hours 08/30/17 08/30/17 08/30/17 08/31/17 12:04 16:19 22:00 02:00 Temp 97.4 98.1 97.1 97.2 Pulse 104 119 99 94 Resp B/P (MAP) 125/80 (95) 132/92 (105) 134/91 (105) 124/84 (97) Pulse Ox 97 99 97 98 O2 Delivery Room Air Room Air Room Air Room Air Intake and Output 08/30/17 08/30/17 08/31/17 15:00 23:00 07:00 Intake Total 2250 ml Output Total 2800 ml Balance -550 ml Laboratory Tests Test 08/31/17 05:50 Range/Units White Blood Count 15.7 H 4.3-11.0 10^3/uL Red Blood Count 2.16 L 4.35-5.85 10^6/uL Hemoglobin 7.0 L 11.5-16.0 G/DL Hematocrit 21 L 35-52 % Mean Corpuscular Volume 94 80-99 FL Mean Corpuscular Hemoglobin 32 25-34 PG Mean Corpuscular Hemoglobin Concent 34 32-36 G/DL Red Cell Distribution Width 12.4 10.0-14.5 % Platelet Count 144 130-400 10^3/uL Mean Platelet Volume 11.1 H 7.4-10.4 FL Neutrophils (%) (Auto) 78 H 42-75 % Lymphocytes (%) (Auto) 17 12-44 % Monocytes (%) (Auto) 5 0-12 % Eosinophils (%) (Auto) 1 0-10 % Basophils (%) (Auto) 0 0-10 % Neutrophils # (Auto) 12.2 H 1.8-7.8 X 10^3 Lymphocytes # (Auto) 2.7 1.0-4.0 X 10^3 Monocytes # (Auto) 0.7 0.0-1.0 X 10^3 Eosinophils # (Auto) 0.1 0.0-0.3 10^3/uL Basophils # (Auto) 0.0 0.0-0.1 10^3/uL Physical Exam: General - Alert and oriented, no apparent distress Abdomen - Soft, appropriately tender to palpation, non-distended, fundus firm at umbilicus Extremities - no edema, negative Barbra's bilaterally Incision- c/d/i Assessment: POD 2 PLTCS - with uterine incision avulsion involving bilateral uterine arteries Acute blood loss anemia Plan: Routine care. Encourage breast feeding. Encourage ambulation. Ferrous sulfate supplementation. Transfusing one unit PRBC Plan for discharge today after blood transfusion if patient continues to do well Vitals - Labs Vital Signs - I&O Vital Signs Date Time Temp Pulse Resp B/P (MAP) Pulse Ox O2 Delivery O2 Flow Rate FiO2 08/31/17 02:00 97.2 94 18 124/84 (97) 98 Room Air 08/30/17 22:00 97.1 99 18 134/91 (105) 97 Room Air 08/30/17 16:19 98.1 119 18 132/92 (105) 99 Room Air 08/30/17 12:04 97.4 104 18 125/80 (95) 97 Room Air I & O 08/31/17 07:00 Intake Total 2250 ml Output Total 2800 ml Balance -550 ml Labs Laboratory Tests 08/31/17 05:50: White Blood Count 15.7H, Red Blood Count 2.16L, Hemoglobin 7.0L, Hematocrit 21L , Mean Corpuscular Volume 94, Mean Corpuscular Hemoglobin 32, Mean Corpuscular Hemoglobin Concent 34, Red Cell Distribution Width 12.4, Platelet Count 144, Mean Platelet Volume 11.1H, Neutrophils (%) (Auto) 78H, Lymphocytes (%) (Auto) 17, Monocytes (%) (Auto) 5, Eosinophils (%) (Auto) 1, Basophils (%) (Auto) 0, Neutrophils # (Auto) 12.2H, Lymphocytes # (Auto) 2.7, Monocytes # (Auto) 0.7, Eosinophils # (Auto) 0.1, Basophils # (Auto) 0.0 Microbiology 08/28/17 Urine Culture - Final, Complete HUMBERTO FLORES DO Aug 31, 2017 8:51 am
[2017-08-31] MEDS ORDERED: NS IV 500 ML 500 ML ONE (09:46)
[2017-08-31] MEDS ORDERED: NS IV 500 ML 500 ML IV SCH (10:00)
[2017-08-31 10:17] VITALS: BP 124/78
[2017-08-31 10:32] VITALS: BP 120/81
[2017-08-31 12:10] VITALS: BP 119/78
[2017-08-31 14:50] LABS: HEMOGLOBIN 8.5 G/DL (11.5-16.0)
--- NOTE | 2017-09-06 08:51 | Physician Query Clarification ---
PQ-Accidental Op Laceration Admission/Discharge Admission Date: Aug 28, 2017 at 14:36 Discharge Date: Aug 31, 2017 at 17:40 Operative Report: Uterine incision avulsion with bilateral uterine arteries Question: Should this Uterine incision avulsion with bilateral uterine arteries be classified as: Please document a response below. PHYSICIAN RESPONSE Classified as: Integral to the procedure Explanation of clincal finding Should read uterine incision extension, no evulsion possibly rehab tech error In responding to this query, please exercise your independent professional judgment. The purpose of this communication is to more accurately reflect the complexity of your patients condition. The fact that a question is asked does not imply that any particular answer is desired or expected. Thank you for your timely response to this clarification. Requestors name: [ ] Phone # [ ] THIS PHYSICIAN QUERY FORM IS A PERMANENT PART OF THE MEDICAL RECORD NASREEN HUERTA Sep 06, 2017 08:51 HUMBERTO FLORES DO Sep 06, 2017 18:48
--- NOTE | 2017-09-06 15:36 | Physician Query Clarification ---
PQ-Accidental Op Laceration Admission/Discharge Admission Date: Aug 28, 2017 at 14:36 Discharge Date: Aug 31, 2017 at 17:40 Operative Report: uterine incision avulsion involving bilateral uterine arteries Question: Should this tear/injury/puncture be classified as: Please document a response below. In responding to this query, please exercise your independent professional judgment. The purpose of this communication is to more accurately reflect the complexity of your patients condition. The fact that a question is asked does not imply that any particular answer is desired or expected. Thank you for your timely response to this clarification. Requestors name: [ ] Phone # [ ] THIS PHYSICIAN QUERY FORM IS A PERMANENT PART OF THE MEDICAL RECORD NASREEN HUERTA Sep 06, 2017 15:36
== END 2017-08-31 17:40 | disposition home or self-care (01) | DRG 765 ==
LOC: WSo 12:38 → LDRP 12:39 → WSo 14:36 → LDRP 14:36
PROVIDERS: ADMIT Obstetrics & Gynecology; ATTEND Obstetrics & Gynecology
PROC: 10D00Z1 Extraction of Products of Conception, Low, Open Approach (ICD-10-PCS; principal; 2017-08-28)
DX: O48.0 Post-term pregnancy (principal); O13.3 Gestational [pregnancy-induced] hypertension without significant proteinuria, third trimester; O76 Abnormality in fetal heart rate and rhythm complicating labor and delivery; O99.03 Anemia complicating the puerperium; D62 Acute posthemorrhagic anemia; Z3A.40 40 weeks gestation of pregnancy; Z37.0 Single live birth
CPT/HCPCS: 36415; 80053; 81000; 82570; 84156; 84550; 85014; 85018; 85025; 85027; 86850; 86900; 86901; 86920; 87088; 88307; 94664; 99212

== ENCOUNTER → 2019-04-05 | Outpatient (CLI) | payer BC ==
[~2019-04-05] MED LIST changes: +ACHD5005 PO; +DOCU100C37 PO; +FERR325T18 PO; +IBUP-1773 PO; +PREN1TAB86 PO
--- NOTE | 2019-04-05 17:08 | Diagnostic Imaging Report ---
INDICATION: Undergoing anatomical assessment during normal . TECHNIQUE: Multiple real-time grayscale images were obtained over the gravid uterus. COMPARISON: None. FINDINGS: A single viable intrauterine , currently in a cephalic presentation. Normal amount of amniotic fluid appears to be present. Placenta is posterior and without evidence for previa. anatomical assessment demonstrates unremarkable appearance about the kidneys, bladder, stomach, intracranial structures, four-chamber heart, three-vessel cord, and cord insertion site, as well as spine. Cervical length is approximately 3.5 cm. Ovaries are not visualized, likely owing to the current gestational status. Biometrical measurements are as follows: Biparietal 4.62 cm, age 20 weeks 0 days. Head circumference 17.98 cm, age 20 weeks 3 days. Abdominal circumference 15.31 cm, age 20 weeks 4 days. Femur length 3.43 cm, age 20 weeks 6 days. Sonographic estimate age: 20 weeks 4 days. Sonographic estimated date of delivery: 08/19/2019. Estimated Weight: 364 gm (+/- 53 gm). LMP percentile: 31%. heart rate: 135 beats per minute. number: 1 of 1. IMPRESSION: 1. Single viable intrauterine , currently in a cephalic presentation. Sonographic estimated age at 20 weeks 4 days for an estimated date of delivery of August 19, 2019. No abnormalities are suggested at this time. Dictated by: Dictated on workstation # [id number]
== END ==
LOC: RAD 15:14
PROVIDERS: ATTEND Nurse Practitioner Women's Health
DX: Z34.92 Encounter for supervision of normal pregnancy, unspecified, second trimester (principal); Z3A.20 20 weeks gestation of pregnancy
CPT/HCPCS: 76805

== ENCOUNTER 2019-06-29 11:09 | Observation (INO) | payer BC ==
[~2019-06-29] VITALS: Ht 165.1 cm; Wt 69.0 kg
[2019-06-29] VITALS (16 sets, daily range): BP systolic 84–112; BP diastolic 50–69
--- NOTE | 2019-06-29 11:09 | NUR ---
ANGELES WHITE presented to unit via AMB from HOME, accompanied by SPOUSE, with c/o PELVIC PRESSURE AND VAGINAL DISCHARGE. ANGELES WHITE weighed, gowned, voided, and to bed. EFHM and TOCO applied, VS taken. ANGELES WHITE oriented to bed controls, call light, TV, heat, and A/C controls.
--- NOTE | 2019-06-29 11:30 | NUR ---
CARE ASSUMED OF THIS PT BY FILIPE EUCEDA.
--- NOTE | 2019-06-29 11:40 | NUR ---
DR. BARTLETT CALLED TO CHECK ON PT'S ARRIVAL. UPDATE AND OVERVIEW OF PT'S COMPLAINT.
--- NOTE | 2019-06-29 11:54 | NUR ---
AMNIO SWAB NEGATIVE. SVE BY FILIPE EUCEDA. CERVIX ADMITS 1 FINGER AND APPEARS TO BE 100% EFFACED AND SOFT. MEMBRANES PALPATED AT CERVICAL OS BUT NOT PROTRUDING.
[2019-06-29 11:57] LABS: BILIRUBIN,URINE NEGATIVE (NEGATIVE); CLARITY,URINE CLEAR; COLOR,URINE YELLOW; GLUCOSE, URINE (UA) NEGATIVE (NEGATIVE); KETONES,URINE NEGATIVE (NEGATIVE); LEUKOCYTE ESTERASE ,URINE TRACE (NEGATIVE); NITRITE,URINE NEGATIVE (NEGATIVE); PROTEIN,URINE NEGATIVE (NEGATIVE)
--- NOTE | 2019-06-29 12:02 | NUR ---
DR. BARTLETT NOTIFIED OF CERVICAL EXAM. ORDERS TO CONTINUE TO MONITOR FOR ANOTHER HOUR AND WILL COME TO SEE PT.
[2019-06-29 12:21] LABS: BACTERIA,URINE FEW /HPF
--- NOTE | 2019-06-29 12:40 | NUR ---
MESSAGE LEFT FOR DR. BARTLETT TO RETURN CALL. PT KENNY Q 7 MIN/70-100 SEC DURATION/MILD TO PALPATION.FHR 135 WITH MOD VARIABILITY AND + ACCELS.
--- NOTE | 2019-06-29 13:00 | NUR ---
CALLED DR. BARTLETT AGAIN SHE WAS COMING OFF OF THE ELEVATOR.
--- NOTE | 2019-06-29 13:03 | NUR ---
DR. BARTLETT TO ROOM. TALKING WITH PT AND SPOUSE ABOUT PLAN OF CARE. ORDERS RECEIVED.
[2019-06-29] MEDS ORDERED: NIFEdipine 10 MG CAPS (WOMEN'S SERVICES ONLY!!!) PO NR (13:15)
[2019-06-29] MEDS ORDERED: AMPICILLIN FOR IV USE 2,000 MG in WATER (STERILE) FOR INJECTION 14.8 ML IV NR (13:15)
[2019-06-29] MEDS ORDERED: LACTATED RINGERS 500 ML IV SCH (13:15)
--- NOTE | 2019-06-29 13:19 | History & Physical-OB ---
OB - Chief Complaint & HPI Date/Time Date of Admission: Date of Admission: Date seen by a Provider: Jun 29, 2019 Time Seen by a Provider: 13:15 Chief Complaint/History OB-Reason for Admission/Chief: Labor Hx : 2 Hx Para: 1 Expected Date of Delivery: Aug 17, 2019 Gestational Age in Weeks: 33 Gestational Age in Days: 0 Other reason for admission: This is a 29 year old at 33 weeks gestation who presented with complaint of pelvic pressure and brownish vaginal discharge. She had called the office yesterday stating that she had had been in [place] and had noticed an increase in lower pelvic pressure. She does not think that this is labor. she states this has been increased since 06/26. She also told the RN she had vaginal spotting yesterday. However, she now described an increase in discharge with a brownish tint. She states that the pressure has not stopped but has not increased either. No leakage of fluid, no bleeding, no change in movements. states that she has had increase in low back pain and has been unable to sleep due to this. After evaluation, RN noted that she is having irregular contractions every 4-7 minutes. these palpate mild to moderate. However, her cervix is completely effaced with a cervical dilation of 1-2 cm. With brownish discharge. She does not have history of labor. she does have history of previous CS for FTP . Admission Nurse Assessment Rev: Yes History of Labs O+/- VDRL NR HbSAg - HIV - Rub I Allergies and Home Medications Allergies Coded Allergies: No Known Drug Allergies (Unverified , 02/08/11) Home Medications Vit W-Ca,Fe,FA(<1 mg) 1 Each Tablet, 1 TAB PO DAILY, (Reported) Patient Home Medication List Home Medication List Reviewed: Yes OB - History Hx of Present Care: Yes Ultrasounds: Normal mid trimester US Obstetrical Complications: None Medical Complications: None Information Induced Hypertension: No Maternal Gestational Diabetes: No Hemorrhage: No Obstetrical History Hx : 2 Hx Para: 1 Hx Termination: No Hx Total # of Abortions (Spona: 0 Hx Ectopic : No Hx Complication: No Hx Induced Hypertens: No Hx Maternal Gestational Diabet: No Hx Hemorrhage: No Delivery History Hx Dystocia: Yes Hx Section: Yes Adverse Rxn to Tranfusion: No Patient Past Medical History n/a Social History/Family History HIV/AIDS: No Recent Infectious Disease Expo: No Sexually Transmitted Disease: No Alcohol Use: Denies Use Recreational Drug Use: No 2nd Hand Smoke Exposure: No Immunizations Hepatitis A: No Hepatitis B: No Date of Influenza Vaccine: Jun 05, 2019 Rubella: immune RPR/VDRL: Negative GBS Status: Unknown HBsAG: Negative OB - Admission Exam Physical Exam Vitals: Vital Signs 06/29/19 06/29/19 11:30 12:05 Temp 36.6 Pulse 81 Resp 18 B/P (MAP) 110/68 (82) Pulse Ox 99 O2 Delivery Room Air Heart: Rhythm Normal Lungs: Clear Abdomen: Gravid Extremities: Normal Reflexes: Normal Cervical Dilatation: 1cm Effacement: 0% Station: -2 Membranes: Intact Heart Rate: 140's Accelerations: Accelerations Present Decelerations: No Decelerations Short Term Variability: Present 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 Variability: Average (6-25) Contractions on Admission: 6-10 Minutes Apart Labs Laboratory Tests Test 06/29/19 11:30 Range/Units Urine Color YELLOW Urine Clarity CLEAR Urine pH 7.0 5-9 Urine Specific [place] 1.020 1.016-1.022 Urine Protein NEGATIVE NEGATIVE Urine Glucose (UA) NEGATIVE NEGATIVE Urine Ketones NEGATIVE NEGATIVE Urine Nitrite NEGATIVE NEGATIVE Urine Bilirubin NEGATIVE NEGATIVE Urine Urobilinogen 1.0 < = 1.0 MG/DL Urine Leukocyte Esterase TRACE NEGATIVE Urine RBC (Auto) 2+ H NEGATIVE Urine RBC NONE /HPF Urine WBC 5-10 H /HPF Urine Squamous Epithelial Cells 2-5 /HPF Urine Crystals NONE /LPF Urine Bacteria FEW H /HPF Urine Casts NONE /LPF Urine Mucus NEGATIVE /LPF Urine Culture Indicated YES OB - Assessment/Plan/Diagnosis Assessment Assessment: IUP - , labor Admission Dx labor previous section Admission Status: Observation Reason for Inpatient Admission: Tocolysis Plan Plan: Other (Admit for tocolysis (procardia); betamethasone and ampicillin for GBS prophylaxis. Will monitor for sign and symptoms of contractions. Will discontinue tocolysis after second dose of betamethasone. ) VIKAS BARTLETT DO Jun 29, 2019 13:19
--- NOTE | 2019-06-29 13:23 | NUR ---
1000 CC LR STARTED IV IN RIGHT WRIST WITH A #18G INTRACATH TRA W/O RATE X500CC. BLOOD OBTAINED FOR LABS PRIOR TO INITIATING FLUIDS. SITE CLEAR.
[2019-06-29] MEDS ORDERED: diphenhydrAMINE 25 MG TAB (BENADRYL) PO PRN (13:45)
[2019-06-29] MEDS ORDERED: ACETAMINOPHEN 500 MG TAB (TYLENOL) PO PRN (13:45)
[2019-06-29 13:59] LABS: BASOPHILS % (AUTO) 0 % (0-10); EOSINOPHILS % (AUTO) 0 % (0-10); HEMATOCRIT 36 % (35-52); HEMOGLOBIN 12.3 G/DL (11.5-16.0); LYMPHOCYTES # (AUTO) 1.8 X 10^3 (1.0-4.0); LYMPHOCYTES % (AUTO) 16 % (12-44); MEAN CORPUSCULAR HGB CONC 34 G/DL (32-36); MEAN CORPUSCULAR VOLUME 92 FL (80-99); MEAN PLATELET VOLUME 11.6 FL (7.4-10.4); MONOCYTES # (AUTO) 0.7 X 10^3 (0.0-1.0); MONOCYTES % (AUTO) 6 % (0-12); NEUTROPHILS # (AUTO) 8.7 X 10^3 (1.8-7.8); NEUTROPHILS % (AUTO) 77 % (42-75); PLATELET COUNT 142 10^3/uL (130-400); RED CELL DISTRIBUTION WIDTH 12.7 % (10.0-14.5); WHITE BLOOD COUNT 11.2 10^3/uL (4.3-11.0)
[2019-06-29] MEDS: BETAMETHASONE ACE/NA PHOS 6 MG/ML (CELESTONE SOLUSPAN) IM SCH (14:03)
[2019-06-29 14:04] LABS: MEAN CORPUSCULAR HEMOGLOBIN 31 PG (25-34)
--- NOTE | 2019-06-29 14:08 | NUR ---
PROCARDIA 40 MG P.O.. BETAMETHASONE 12 MG IM IN RIGHT VG SITE. SITE CLEAR, AND LOADING AMPICILLIN 2 GRAMS IVPB.
--- NOTE | 2019-06-29 14:15 | NUR ---
SEE LABOR FLOW SHEET FOR NOTES.
[2019-06-29] MEDS: NIFEdipine 10 MG CAPS (WOMEN'S SERVICES ONLY!!!) PO SCH ×2 (18:08→22:26)
[2019-06-29] MEDS: AMPICILLIN FOR IV USE 1,000 MG in WATER (STERILE) FOR INJECTION 7.4 ML IV SCH ×2 (18:11→22:26)
[2019-06-29] MEDS ORDERED: LACTATED RINGERS 1,000 ML IV ONE (18:24)
[2019-06-29] MEDS: LACTATED RINGERS 1,000 ML IV SCH (18:31)
[2019-06-30] VITALS (18 sets, daily range): BP systolic 91–109; BP diastolic 55–65
[2019-06-30] MEDS: NIFEdipine 10 MG CAPS (WOMEN'S SERVICES ONLY!!!) PO SCH ×3 (02:23→10:53)
[2019-06-30] MEDS: AMPICILLIN FOR IV USE 1,000 MG in WATER (STERILE) FOR INJECTION 7.4 ML IV SCH ×3 (02:23→10:53)
[2019-06-30] MEDS: LACTATED RINGERS 1,000 ML IV SCH ×2 (02:24→10:53)
--- NOTE | 2019-06-30 06:34 | Progress Note ---
Progress Note Assessment/Plan Date Seen by Provider: Jun 30, 2019 Time Seen by Provider: 06:30 Events since last exam Initial dose of Procardia stopped contractions, but she started having a few prior to the next dose. Her contractions, however, are very mild. This am none are noticed. no repeat cervical exam was done. Had tachycardia after procardia dosing. did not after then last one. She has received betamethasone x 1 at 1400. Has received ampicillin. Laboratory Tests Test 06/29/19 11:30 06/29/19 13:23 Range/Units Urine Color YELLOW Urine Clarity CLEAR Urine pH 7.0 5-9 Urine Specific [place] 1.020 1.016-1.022 Urine Protein NEGATIVE NEGATIVE Urine Glucose (UA) NEGATIVE NEGATIVE Urine Ketones NEGATIVE NEGATIVE Urine Nitrite NEGATIVE NEGATIVE Urine Bilirubin NEGATIVE NEGATIVE Urine Urobilinogen 1.0 < = 1.0 MG/DL Urine Leukocyte Esterase TRACE NEGATIVE Urine RBC (Auto) 2+ H NEGATIVE Urine RBC NONE /HPF Urine WBC 5-10 H /HPF Urine Squamous Epithelial Cells 2-5 /HPF Urine Crystals NONE /LPF Urine Bacteria FEW H /HPF Urine Casts NONE /LPF Urine Mucus NEGATIVE /LPF Urine Culture Indicated YES White Blood Count 11.2 H 4.3-11.0 10^3/uL Red Blood Count 3.91 L 4.35-5.85 10^6/uL Hemoglobin 12.3 11.5-16.0 G/DL Hematocrit 36 35-52 % Mean Corpuscular Volume 92 80-99 FL Mean Corpuscular Hemoglobin 31 25-34 PG Mean Corpuscular Hemoglobin Concent 34 32-36 G/DL Red Cell Distribution Width 12.7 10.0-14.5 % Platelet Count 142 130-400 10^3/uL Mean Platelet Volume 11.6 H 7.4-10.4 FL Neutrophils (%) (Auto) 77 H 42-75 % Lymphocytes (%) (Auto) 16 12-44 % Monocytes (%) (Auto) 6 0-12 % Eosinophils (%) (Auto) 0 0-10 % Basophils (%) (Auto) 0 0-10 % Neutrophils # (Auto) 8.7 H 1.8-7.8 X 10^3 Lymphocytes # (Auto) 1.8 1.0-4.0 X 10^3 Monocytes # (Auto) 0.7 0.0-1.0 X 10^3 Eosinophils # (Auto) 0.0 0.0-0.3 10^3/uL Basophils # (Auto) 0.0 0.0-0.1 10^3/uL 06/29/19 06/29/19 06/29/19 06/29/19 19:02 19:23 20:00 21:00 Temp 37.0 36.7 Pulse 111 100 91 78 Resp 18 18 18 18 B/P (MAP) 89/50 (63) 99/57 (71) 101/56 (71) 109/58 (75) O2 Delivery Room Air Room Air Room Air 06/29/19 06/29/19 06/29/19 06/30/19 22:00 23:00 23:30 00:00 Temp 36.5 Pulse 85 77 96 81 Resp 18 18 18 B/P (MAP) 99/59 (72) 88/54 (65) 103/63 (76) Pulse Ox 96 O2 Delivery Room Air Room Air Room Air Room Air 06/30/19 06/30/19 01:00 02:00 Pulse 81 81 Resp 18 18 B/P (MAP) 97/58 (71) 96/60 (72) O2 Delivery Room Air Room Air 06/30/19 00:00 Intake Total 1022.2 ml Balance 1022.2 ml Assessment/Plan 1. labor Continue tocolysis, betamethasone and ampicillin Vitals Last set of Vitals Signs Vital Signs Date Time Temp Pulse Resp B/P (MAP) Pulse Ox O2 Delivery O2 Flow Rate FiO2 06/30/19 02:00 81 18 96/60 (72) Room Air 06/29/19 23:30 36.5 96 I&O I&O Intake and Output 06/30/19 00:00 Intake Total 1022.2 ml Balance 1022.2 ml Intake IV Total 1022.2 ml Labs Laboratory Tests 06/29/19 11:30: Urine Color YELLOW, Urine Clarity CLEAR, Urine pH 7.0, Urine Specific [place] 1.020, Urine Protein NEGATIVE, Urine Glucose (UA) NEGATIVE, Urine Ketones NEGATIVE, Urine Nitrite NEGATIVE, Urine Bilirubin NEGATIVE, Urine Urobilinogen 1.0, Urine Leukocyte Esterase TRACE, Urine RBC (Auto) 2+H, Urine RBC NONE, Urine WBC 5-10H, Urine Squamous Epithelial Cells 2-5, Urine Crystals NONE, Urine Bacteria FEWH, Urine Casts NONE, Urine Mucus NEGATIVE, Urine Culture Indicated YES 06/29/19 13:23: White Blood Count 11.2H, Red Blood Count 3.91L, Hemoglobin 12.3, Hematocrit 36, Mean Corpuscular Volume 92, Mean Corpuscular Hemoglobin 31, Mean Corpuscular Hemoglobin Concent 34, Red Cell Distribution Width 12.7, Platelet Count 142, Mean Platelet Volume 11.6H, Neutrophils (%) (Auto) 77H, Lymphocytes (%) (Auto) 16, Monocytes (%) (Auto) 6, Eosinophils (%) (Auto) 0, Basophils (%) (Auto) 0, Neutrophils # (Auto) 8.7H, Lymphocytes # (Auto) 1.8, Monocytes # (Auto) 0.7, Eosinophils # (Auto) 0.0, Basophils # (Auto) 0.0 Diagnosis/Problems Diagnosis/Problems (1) labor in third trimester Status: Acute Assessment & Plan: Plan continued tocolysis with procardia. Will receive second dose of betamethasone this afternoon. Continue ampicillin. Consider DC later today on bed rest or tomorrow depending on uterine contractions. Qualifiers: VIKAS BARTLETT DO Jun 30, 2019 06:34
--- NOTE | 2019-06-30 07:00 | NUR ---
REPORT RECEIVED SEE LABOR FLOWSHEET FOR DOCUMENTATION.
[2019-06-30] MEDS: BETAMETHASONE ACE/NA PHOS 6 MG/ML (CELESTONE SOLUSPAN) IM SCH (14:23)
--- NOTE | 2019-06-30 16:26 | NUR ---
IV DC'D, DISCHARGE INSTRUCTIONS EXPLAINED TO PT AND MOTHER, QUESTIONS ANSWERED, PT TO FOLLOW UP WITH DR FLORES SCHEDULED. PT DENIES C/O OR DISTRESS. LABOR PRECAUTIONS REVIEWED AND PT VERBALIZES UNDERSTANDING AND WHEN TO RETURN TO OB IF NEEDED.
--- NOTE | 2019-06-30 16:33 | NUR ---
PT AMBULATED OFF UNIT TO PRIVATE VEHICLE WITH MOTHER AT SIDE NO DISTRESS NOTED.
== END 2019-06-30 16:33 | disposition home or self-care (01) ==
LOC: WSo 11:09 → LDRP 11:09 → WSo 12:59 → LDRP 15:00
PROVIDERS: ADMIT Obstetrics & Gynecology; ATTEND Obstetrics & Gynecology
DX: O60.03 Preterm labor without delivery, third trimester (principal)
CPT/HCPCS: 36415; 81000; 85025; 87088; 96361; 96374; 96376; 99211; G0378

== ENCOUNTER 2019-07-13 17:37 | Inpatient (IN) | payer BC ==
[2019-07-12 21:00] VITALS: BP 106/69
[~2019-07-13] VITALS: Ht 165.1 cm; Wt 69.0 kg
[2019-07-13] VITALS (9 sets, daily range): BP systolic 84–115; BP diastolic 36–71
--- NOTE | 2019-07-13 17:30 | NUR ---
ANGELES WHITE presented to unit via AMBULATORY from HOME, accompanied by S/O with c/o POSSIBLE WATER BROKE. ANGELES WHITE weighed, gowned, voided, and to bed. EFHM and TOCO applied, VS taken. ANGELES WHITE oriented to bed controls, call light, TV, heat, and A/C controls.
--- NOTE | 2019-07-13 17:45 | NUR ---
Dr Morton called and notified of pt arrival, srom. New orders received to prepare for . plan of care reviewed with pt and .
[2019-07-13] MEDS ORDERED: LACTATED RINGERS 1,000 ML IV PRN ×2 (17:55)
[2019-07-13] MEDS ORDERED: METOCLOPRAMIDE INJ 10 MG/2 ML (REGLAN) IV ONE (18:00)
[2019-07-13] MEDS ORDERED: CATHETER FLUSH 10 ML SYR IV PRN (18:00)
[2019-07-13] MEDS ORDERED: FAMOTIDINE 20MG/2ML IV (PEPCID) IV ONE (18:00)
[2019-07-13] MEDS ORDERED: CITRIC ACID/SOB CIT (BICITRA) 30 ML UDC PO ONE (18:00)
[2019-07-13] MEDS ORDERED: ceFAZolin 2 GM/50 ML NS 50 ML IV ONE (18:00)
--- NOTE | 2019-07-13 18:01 | History & Physical-OB ---
OB - Chief Complaint & HPI Date/Time Date of Admission: Date of Admission: Date seen by a Provider: Jul 13, 2019 Time Seen by a Provider: 18:05 Chief Complaint/History OB-Reason for Admission/Chief: Rupture of Membranes () Hx : 2 Hx Para: 1 Expected Date of Delivery: Aug 17, 2019 Gestational Age in Weeks: 35 Gestational Age in Days: 0 Indication for : desires repeat Admission Nurse Assessment Rev: Yes History of Labs O pos Antibody neg RI RPR NR HBsAg NR HIV NR GC neg GBS pending Allergies and Home Medications Allergies Coded Allergies: No Known Drug Allergies (Unverified , 02/08/11) Home Medications Vit W-Ca,Fe,FA(<1 mg) 1 Each Tablet, 1 TAB PO DAILY, (Reported) Patient Home Medication List Home Medication List Reviewed: Yes OB - History Hx of Present Care: Yes Ultrasounds: Normal mid trimester US Obstetrical Complications: Other ( labor and rom) Medical Complications: None Obstetrical History Hx : 2 Hx Para: 1 Hx Termination: No Hx Complication: No Hx Induced Hypertens: No Hx Maternal Gestational Diabet: No Delivery History Hx Dystocia: Yes Hx Section: Yes Adverse Rxn to Tranfusion: No Patient Past Medical History n/a Social History/Family History HIV/AIDS: No Recent Infectious Disease Expo: No Sexually Transmitted Disease: No Alcohol Use: Denies Use Recreational Drug Use: No 2nd Hand Smoke Exposure: No Immunizations Hepatitis A: No Hepatitis B: No Date of Influenza Vaccine: Jun 05, 2019 OB - Admission Exam Physical Exam Vitals: Vital Signs 07/13/19 17:48 Temp 36.6 Pulse 85 Resp 18 Pulse Ox 97 O2 Delivery Room Air HEENT: NCAT Heart: Rhythm Normal Lungs: Clear Abdomen: Gravid Extremities: Normal Heart Rate: 130's Accelerations: Accelerations Present Decelerations: Variable Decelerations Short Term Variability: Present Closer On Variability: Average (6-25) OB - Assessment/Plan/Diagnosis Assessment Assessment: section Admission Dx 29 yo @ 35 weeks SROM Previous Admission Status: Inpatient Order (span 2 midnights) Reason for Inpatient Admission: Repeat Plan Plan: Section HUMBERTO FLORES DO Jul 13, 2019 18:01
--- NOTE | 2019-07-13 18:03 | NUR ---
pt repositioned to left side lying
[2019-07-13] MEDS ORDERED: ROPIVACAINE 5MG/ML 30ML VIAL ONE (18:16)
[2019-07-13] MEDS ORDERED: fentaNYL INJECTION 100 MCG/2 ML AMP ONE (18:17)
[2019-07-13] MEDS ORDERED: OXYTOCIN/NORMAL SALINE 1,000 ML IV ONE (18:28)
--- NOTE | 2019-07-13 18:30 | NUR ---
Dr wilder to see patient.
[2019-07-13 18:32] LABS: BASOPHILS % (AUTO) 0 % (0-10); EOSINOPHILS % (AUTO) 0 % (0-10); HEMATOCRIT 33 % (35-52); HEMOGLOBIN 11.3 G/DL (11.5-16.0); LYMPHOCYTES # (AUTO) 2.6 X 10^3 (1.0-4.0); LYMPHOCYTES % (AUTO) 24 % (12-44); MEAN CORPUSCULAR HEMOGLOBIN 31 PG (25-34); MEAN CORPUSCULAR HGB CONC 34 G/DL (32-36); MEAN CORPUSCULAR VOLUME 91 FL (80-99); MEAN PLATELET VOLUME 11.6 FL (7.4-10.4); MONOCYTES # (AUTO) 0.6 X 10^3 (0.0-1.0); MONOCYTES % (AUTO) 6 % (0-12); NEUTROPHILS # (AUTO) 7.7 X 10^3 (1.8-7.8); NEUTROPHILS % (AUTO) 70 % (42-75); PLATELET COUNT 128 10^3/uL (130-400); RED CELL DISTRIBUTION WIDTH 12.1 % (10.0-14.5)
[2019-07-13] MEDS ORDERED: HYDROmorphone 2 MG/ML VIAL (DILAUDID) IV ONE (18:45)
[2019-07-13] MEDS ORDERED: ONDANSETRON 4 MG/2 ML (SDV) Z0FRAN IVP PRN ×2 (18:45)
[2019-07-13] MEDS ORDERED: MEASLES,MUMPS,RUBELLA 1 EA INJ SC SCH (18:45)
[2019-07-13] MEDS ORDERED: TETANUS,DIPTH,PERTUSS P/F (BOOSTRIX) 0.5 ML VIAL IM SCH (18:45)
[2019-07-13] MEDS ORDERED: IBUP-844 PO (18:47)
[2019-07-13] MEDS ORDERED: DOCU100C37 PO (18:47)
[2019-07-13] MEDS ORDERED: ACHD5005 PO (18:47)
--- NOTE | 2019-07-13 18:50 | Discharge Inst-Women's Service ---
Discharge Inst-Women's Serv Depart Medication/Instructions New, Converted or Re-Newed RX: RX on Chart Final Diagnosis POD 2 RLTCS Problems Reviewed?: Yes Consults/Follow Up Additional Follow Up: Yes Orders/Referrals Dr. Morton in 7-10 days and in 6 weeks Activity Activity: Activity as Tolerated Driving Instructions: No Driving for 1 Week NO SMOKING: NO SMOKING Nothing Inside Vagina: No Douching, No [place], No Tampons Diet Discharge Diet: No Restrictions Symptoms to Report to : Bleeding Excessive, Pain Increased, Fever Over 101 Degrees F, Vaginal Bleeding Increase, Questions/Concerns For Any Problems or Questions: Contact Your Physician Skin/Wound Care Infection Signs and Symptoms: Increased Redness, Foul Odor of Wound, Skin Itchy or Has a Rash, Increased Swelling, Temperature Above 101 F Operative Area Clean and Dry: Keep Incision Clean/Dry Stitches/[place]/Dermabond: Dermabond, Care of Stitches Bathing Instructions: HUMBERTO Sheth DO Jul 13, 2019 18:50
--- NOTE | 2019-07-13 20:55 | NUR ---
PT TO 305 BY BED AFTER COMPLETION OF RECOVERY. VSS. PT DENIES ANY PAIN AT THIS TIME. MOM AND AT BEDSIDE.
--- NOTE | 2019-07-13 20:55 | NUR ---
PT TO OB5 FROM RECOVERY BY BED.
[2019-07-13] MEDS ORDERED: KETOROLAC 30 MG/ML VIAL ONE (21:31)
[2019-07-13] MEDS ORDERED: OXYTOCIN/NORMAL SALINE 500 ML IV ONE (21:35)
[2019-07-13] MEDS ORDERED: CATHETER FLUSH 10 ML SYR IV SCH (22:00)
[2019-07-13] MEDS: HYDROcodone/APAP 5 MG/325 MG (LORTAB) TAB PO PRN (22:47)
--- NOTE | 2019-07-13 23:55 | NUR ---
PT UP TO BATHROOM. PERICARE COMPLETED. LOCHIA LIGHT TO MODERATE. 1 SMALL CLOT. PT GOT VERY DIZZY AND LIGHTHEADED ON TOILET. PT ASSIST BACK TO BED WITH ASSIST X2.
[2019-07-14] MEDS ORDERED: HYDROmorphone 2 MG/ML VIAL (DILAUDID) ONE (00:41)
[2019-07-14 00:45] VITALS: BP 100/61
--- NOTE | 2019-07-14 02:20 | NUR ---
PT REPORTS PAIN IS UNCONTROLLED AT THIS TIME. LOCHIA LIGHT. FUNDUS FIRM. DILAUDID DOSE GIVEN.
--- NOTE | 2019-07-14 03:00 | NUR ---
PT UP TO BATHROOM WITH STANDBY ASSIST. KYLE WELL. LOCHIA LIGHT. NO CLOTS. VOIDED WITHOUT DIFFICULTY.
--- NOTE | 2019-07-14 03:30 | NUR ---
SANDWICH BOX GIVEN PER REQUEST. PT REPORTS FEELING MUCH BETTER.
[2019-07-14 04:00] VITALS: BP 98/60
[2019-07-14] MEDS: HYDROcodone/APAP 5 MG/325 MG (LORTAB) TAB PO PRN ×4 (04:22→22:13)
[2019-07-14] MEDS: KETOROLAC 30 MG/ML VIAL IVP PRN ×2 (04:22→10:05)
--- NOTE | 2019-07-14 05:48 | OPERATIVE REPORT ---
DATE OF SERVICE: PREOPERATIVE DIAGNOSES: 1. A 29-year-old G2, P1 at 35 weeks gestation. 2. labor and rupture of membranes. 3. Previous . POSTOPERATIVE DIAGNOSES: 1. A 29-year-old G2, P1 at 35 weeks gestation. 2. labor and rupture of membranes. 3. Previous . PROCEDURE: Repeat low transverse section. SURGEON: Fernando Flores DO BROKER ASSISTANT: Yasmin Acosta DNP who was necessary for retraction and manipulation of vital structures throughout the procedure. ANESTHESIA: Spinal. ESTIMATED BLOOD LOSS: 600 mL. URINE OUTPUT: 550 mL clear at the end of the procedure. FLUIDS: 1200 mL lactated Ringer's solution. FINDINGS: A live male infant, weight pending. Apgars of 8 and 8. Grossly normal appearing uterus, bilateral fallopian tubes and ovaries. SPECIMEN SENT: Placenta. INDICATIONS FOR PROCEDURE: This 29-year-old female, who is a patient that presented at 35 weeks with spontaneous rupture of membranes and previous section was performed with the last . The patient had presented earlier in the around 31 weeks with labor and was given betamethasone at that admission. However, she was sent home on bed rest from that point on. Tonight, she presented with gross rupture of membranes. I discussed with the patient delivery at 35 weeks and the risks entailed on that as well as the risk of waiting. We discussed and reviewed risks of after all of her questions were answered, consent was obtained in the preoperative area, and the patient was taken to the operating room. OPERATIVE REPORT IN DETAIL: Once in the operating room, spinal anesthesia was found to be adequate, placed in supine position with leftward tilt, prepped and draped in normal sterile fashion. Timeout was performed. Anesthesia was tested. I then make a Pfannenstiel skin incision through a previously existing scar using knife and carried down to underlying fascia using Bovie cautery. Fascial incision extended laterally using Bovie cautery. Superior aspect of fascial incision was then grasped with Chon clamps, tented upward and dissected off the underlying rectus muscles. The inferior aspect of the fascial incision was then grasped with Kochers, tented up and dissected off the underlying rectus muscles. Rectus muscle was then dissected down the midline using Mack scissors, which exposed the peritoneum, which I entered bluntly and extended using blunt traction. Cesar ring retractor was placed in the peritoneal incision, which offered excellent lateral sidewall retraction. I then identified the lower uterine segment, which was found to be thinned out and make a low transverse incision to the vesicouterine peritoneum and bluntly dissected this off the lower uterine segment. I proceeded with myotomy until membranes were visualized, at which point I extended the uterine incision laterally and superiorly using bandage scissors. The was found in the right transverse presentation. Amniotomy had already been performed at home spontaneously. Clear fluid was still noted; however. The 's buttocks are able to be more easily manipulated out of the left upper abdomen, I bring them down to the incision where I delivered the buttocks and the legs and the torso up to the upper torso at which point I delivered the arms by sweeping them across the chest. While the infant's face downwards, I then delivered the infant's head by lifting the 's body and extending the head through the incision with flexion. After which the nares and oropharynx were bulb suctioned, the was placed on the operative field where the cord was doubly clamped and cut and infant was handed off to waiting nurses in attendance. Cord blood was collected. Three-vessel cord with intact placenta was delivered spontaneously thereafter. IV Pitocin was initiated to facilitate uterine contraction. Uterine fundus confirmed by manual massage. Uterus was then exteriorized and cleared of all endometrial clots and debris. I then proceeded with closing the uterine incision using 0 Vicryl suture in running locked fashion. Second layer of imbricating 0 Monocryl was placed. Excellent hemostasis was noted after doing this. I then placed the uterus back in the pelvis, copiously irrigated the pelvis using normal saline. Once again, there was no active bleeding noted from any of my dissection planes. I placed Interceed antiadhesive over my low transverse incision and proceeded with closing the peritoneum using 3-0 Vicryl suture in a running fashion. The rectus muscle reapproximated using 3-0 Vicryl suture in interrupted fashion. The fascia was reapproximated using 0 Vicryl suture in running fashion. Subcutaneous tissue was reapproximated using 3-0 plain in an interrupted subcutaneous stitch and skin reapproximated using 4-0 Monocryl in a running subcuticular. Dermabond was applied to incision, sterile dressing with adhesive white tape. The patient tolerated the procedure well and sent to recovery area in stable condition. Lap and sponge counts were correct at the end of the procedure. Instrument counts correct as well. Two grams of Ancef given preoperatively for infection prophylaxis. Job ID: [id number] DocumentID: [id number] Dictated Date: 07/13/2019 19:57:54 Dispatcher Chief Coal Slurry Date: 07/14/2019 05:47:16 Dictated By: FERNANDO FLORES DO
--- NOTE | 2019-07-14 06:45 | NUR ---
PT UP TO BATHROOM AT THIS TIME. KYLE WELL. VOIDED WITHOUT DIFFICULTY AND PERICARE COMPLETED. PT TAKEN TO NSY BY W/C TO SEE .
[2019-07-14 07:12] LABS: BASOPHILS % (AUTO) 0 % (0-10); EOSINOPHILS % (AUTO) 0 % (0-10); HEMATOCRIT 28 % (35-52); HEMOGLOBIN 9.6 G/DL (11.5-16.0); LYMPHOCYTES # (AUTO) 1.9 X 10^3 (1.0-4.0); LYMPHOCYTES % (AUTO) 15 % (12-44); MEAN CORPUSCULAR HEMOGLOBIN 32 PG (25-34); MEAN CORPUSCULAR HGB CONC 34 G/DL (32-36); MEAN CORPUSCULAR VOLUME 92 FL (80-99); MONOCYTES # (AUTO) 0.7 X 10^3 (0.0-1.0); MONOCYTES % (AUTO) 6 % (0-12); NEUTROPHILS % (AUTO) 79 % (42-75); PLATELET COUNT 118 10^3/uL (130-400); RED CELL DISTRIBUTION WIDTH 12.1 % (10.0-14.5); WHITE BLOOD COUNT 12.6 10^3/uL (4.3-11.0)
--- NOTE | 2019-07-14 07:15 | NUR ---
REPORT TO ONCOMING SHIFT.
--- NOTE | 2019-07-14 08:00 | NUR ---
PT AND SPOUSE ARE IN THE NURSERY SEEING BABY.
--- NOTE | 2019-07-14 08:05 | NUR ---
BACK TO ROOM VIA W/C.
[2019-07-14 09:00] VITALS: BP 103/61
[2019-07-14] MEDS: DOCUSATE SODIUM 100 MG (COLACE) CAP PO SCH ×3 (09:00→22:13)
--- NOTE | 2019-07-14 09:00 | NUR ---
A.M. ASSESSMENT COMPLETED. VSS. PT'S MOM AT BEDSIDE. ENCOURAGED AMBULATION TO THE BATHROOM. PT'S MOM TAKING PT VIA W/C AND LIFTING HER TO THE TOILET. THIS RN GENTLY INTERVENED AND EXPLAINED THE BEST WAY AND THE BENEFITS OF PT HELPING HERSELF AND INCREASED AMBULATION.
--- NOTE | 2019-07-14 09:30 | NUR ---
ICE PACK TO ABDOMEN. ABD BINDER PLACED ON PT.
--- NOTE | 2019-07-14 10:03 | NUR ---
LORTAB GIVEN. PLAN TO WAIT TO PUMP UNTIL PAIN DECREASED. FAMILY AT BEDSIDE. PT HAS BEEN BACK AND FORTH TO THE NURSERY TODAY.
--- NOTE | 2019-07-14 11:15 | NUR ---
ASSISTED TO THE BATHROOM. VOIDED 500 CC URINE. PERICARE WITH MINIMAL ASSISTANCE. MOVING MUCH BETTER WITH ENCOURAGEMENT. PREPARING TO PUMP. REMAINS IN NURSERY.
--- NOTE | 2019-07-14 11:28 | Postpartum Progress Note ---
Note Note Day # 1 Subjective: Patient is without complaints. Ambulating, voiding. Tolerating a regular diet without nausea or vomiting. Normal lochia. Pain is well controlled with oral pain medications. Objective: Physical Exam: General - Alert and oriented, no apparent distress Abdomen - Soft, appropriately tender to palpation, non-distended, fundus firm at umbilicus Extremities - no edema, negative Barbra's bilaterally Incision- c/d/i Assessment: POD 1 RLTCS Acute blood loss anemia Plan: Routine care. Encourage breast feeding. Encourage ambulation. Ferrous sulfate supplementation. Plan for discharge tomorrow Vitals - Labs Vital Signs - I&O Vital Signs Date Time Temp Pulse Resp B/P (MAP) Pulse Ox O2 Delivery O2 Flow Rate FiO2 07/14/19 09:00 37.1 83 18 103/61 (75) 99 Room Air 07/14/19 04:00 36.8 81 18 98/60 (73) 99 Room Air 07/14/19 00:45 37.0 89 16 100/61 (74) 98 Room Air 07/13/19 22:44 Room Air 07/13/19 22:00 38.2 82 16 97/56 (70) 99 Room Air 07/13/19 21:00 36.5 76 16 106/69 (81) 100 07/13/19 20:50 36.5 16 106/69 (81) 100 Room Air 07/13/19 20:45 17 109/71 (84) 98 07/13/19 20:44 Room Air 10.00 07/13/19 20:30 15 113/68 (83) 99 Room Air 07/13/19 20:30 Room Air 07/13/19 20:15 36.7 17 111/65 (80) 99 Room Air 07/13/19 20:02 Room Air 07/13/19 20:01 19 84/36 (52) 100 Room Air 07/13/19 18:06 98 Non Rebreather 10.00 07/13/19 17:48 36.6 85 18 97 Room Air 07/13/19 17:40 36.6 85 18 115/68 (84) 97 Room Air I & O 07/14/19 07:00 Intake Total 50 ml Output Total 2200 ml Balance -2150 ml Labs Laboratory Tests 07/13/19 18:19: White Blood Count 11.0, Red Blood Count 3.62L, Hemoglobin 11.3L, Hematocrit 33L, Mean Corpuscular Volume 91, Mean Corpuscular Hemoglobin 31, Mean Corpuscular Hemoglobin Concent 34, Red Cell Distribution Width 12.1, Platelet Count 128L, Mean Platelet Volume 11.6H, Neutrophils (%) (Auto) 70, Lymphocytes (%) (Auto) 24, Monocytes (%) (Auto) 6, Eosinophils (%) (Auto) 0, Basophils (%) (Auto) 0, Neutrophils # (Auto) 7.7, Lymphocytes # (Auto) 2.6, Monocytes # (Auto) 0.6, Eosinophils # (Auto) 0.0, Basophils # (Auto) 0.0 07/14/19 06:55: White Blood Count 12.6H, Red Blood Count 3.02L, Hemoglobin 9.6L, Hematocrit 28L, Mean Corpuscular Volume 92, Mean Corpuscular Hemoglobin 32, Mean Corpuscular Hemoglobin Concent 34, Red Cell Distribution Width 12.1, Platelet Count 118L, Mean Platelet Volume 11.0H, Neutrophils (%) (Auto) 79H, Lymphocytes (%) (Auto) 15, Monocytes (%) (Auto) 6, Eosinophils (%) (Auto) 0, Basophils (%) (Auto) 0, Neutrophils # (Auto) 10.0H, Lymphocytes # (Auto) 1.9, Monocytes # (Auto) 0.7, Eosinophils # (Auto) 0.0, Basophils # (Auto) 0.0 HUMBERTO FLORES DO Jul 14, 2019 11:28
--- NOTE | 2019-07-14 11:30 | NUR ---
DR. FLORES IN TO SEE PT.
--- NOTE | 2019-07-14 11:37 | Anesthesia-Regional Post-Op ---
Regional Patient Condition Mental Status: Alert, Oriented x3 Circulation: Same as Pre-Op Headache: Absent Sensation: Full Recovery Motor Block: Absent Post Op Complications Complications None Follow Up Care/Instructions Patient Instructions None needed. Anesthesia/Patient Condition Patient is doing well, no complaints, stable vital signs, no apparent adverse anesthesia problems. No complications reported per nursing. HECTOR DIAZ CRNA Jul 14, 2019 11:37
--- NOTE | 2019-07-14 11:45 | NUR ---
INFANT ABLE TO COME TO ROOM.
[2019-07-14 13:00] VITALS: BP 101/55
--- NOTE | 2019-07-14 13:00 | NUR ---
DOING MUCH BETTER. FAMILY REMAINS AT BEDSIDE.
--- NOTE | 2019-07-14 15:00 | NUR ---
FAMILY REMAINS AT BEDSIDE. CARING FOR . GOOD INTERACTION NOTED.
[2019-07-14 16:00] VITALS: BP 100/61
[2019-07-14] MEDS: IBUPROFEN 600 MG (MOTRIN) TAB PO SCH ×2 (16:06→22:14)
--- NOTE | 2019-07-14 16:30 | NUR ---
PT HAS BEEN PUMPING BREASTS AND GETTING A MODERATE AMOUNT OF COLOSTRUM WHICH IS BEING GIVEN TO INFANT VIA NG TUBE.
[2019-07-14] MEDS ORDERED: IBUPROFEN 600 MG (MOTRIN) TAB PO SCH (19:00)
[2019-07-14 20:15] VITALS: BP 116/78
[2019-07-15 02:05] VITALS: BP 103/66
[2019-07-15] MEDS: IBUPROFEN 600 MG (MOTRIN) TAB PO SCH ×2 (04:33→09:43)
[2019-07-15] MEDS: HYDROcodone/APAP 5 MG/325 MG (LORTAB) TAB PO PRN (04:34)
--- NOTE | 2019-07-15 06:45 | Postpartum Progress Note ---
Note Note Day # 2 Subjective: Patient is without complaints. Ambulating, voiding. Tolerating a regular diet without nausea or vomiting. Normal lochia. Pain is well controlled with oral pain medications. Objective: Physical Exam: General - Alert and oriented, no apparent distress Abdomen - Soft, appropriately tender to palpation, non-distended, fundus firm at umbilicus Extremities - no edema, negative Barbra's bilaterally Incision- c/d/i Assessment: POD 2 RLTCS Acute blood loss anemia Plan: Routine care. Encourage breast feeding. Encourage ambulation. Ferrous sulfate supplementation. Plan for discharge today Vitals - Labs Vital Signs - I&O Vital Signs Date Time Temp Pulse Resp B/P (MAP) Pulse Ox O2 Delivery O2 Flow Rate FiO2 07/15/19 02:05 36.5 77 18 103/66 (78) 98 Room Air 07/14/19 20:15 36.6 92 18 116/78 (91) 97 Room Air 07/14/19 16:00 37.1 96 18 100/61 (74) 97 Room Air 07/14/19 13:00 36.9 86 18 101/55 (70) 98 Room Air 07/14/19 09:00 37.1 83 18 103/61 (75) 99 Room Air I & O 07/15/19 07:00 Intake Total 2740 ml Output Total 2150 ml Balance 590 ml Labs Laboratory Tests 07/14/19 06:55: White Blood Count 12.6H, Red Blood Count 3.02L, Hemoglobin 9.6L, Hematocrit 28L, Mean Corpuscular Volume 92, Mean Corpuscular Hemoglobin 32, Mean Corpuscular Hemoglobin Concent 34, Red Cell Distribution Width 12.1, Platelet Count 118L, Mean Platelet Volume 11.0H, Neutrophils (%) (Auto) 79H, Lymphocytes (%) (Auto) 15, Monocytes (%) (Auto) 6, Eosinophils (%) (Auto) 0, Basophils (%) (Auto) 0, Neutrophils # (Auto) 10.0H, Lymphocytes # (Auto) 1.9, Monocytes # (Auto) 0.7, Eosinophils # (Auto) 0.0, Basophils # (Auto) 0.0 HUMBERTO FLORES DO Jul 15, 2019 06:45
[2019-07-15 08:30] VITALS: BP 99/55
--- NOTE | 2019-07-15 08:30 | NUR ---
A.M. ASSESSMENT COMPLETED. PLAN TO BE DISMISSED A BOARDER MOM. DOING WELL.
[2019-07-15] MEDS: DOCUSATE SODIUM 100 MG (COLACE) CAP PO SCH (08:49)
--- NOTE | 2019-07-15 11:00 | NUR ---
PUMPING BREASTS. DOING WELL. DOING BETTER.
[2019-07-15 12:30] VITALS: BP 103/68
--- NOTE | 2019-07-15 13:00 | NUR ---
VISITORS AT BEDSIDE HOLDING .
--- NOTE | 2019-07-15 13:45 | NUR ---
DISCHARGE INSTRUCTIONS REVIEWED WITH COPY TO PT. RXS FILLED EARLIER BY SPOUSE. STATES UNDERSTANDING OF ALL INSTRUCTIONS AND NEED TO F/U INSTRUCTED AND NEEDED.
[2019-07-15 14:00] VITALS: BP 103/68
--- NOTE | 2019-07-15 14:00 | NUR ---
DISMISSED FROM WS IN STABLE CONDITION. PT WILL REMAIN IN ROOM A ROOMING-IN PARENT.
== END 2019-07-15 14:00 | disposition home or self-care (01) | DRG 787 ==
LOC: LDRP 17:37 → WSo 17:37 → LDRP 17:45 → WS 18:30
PROVIDERS: ADMIT Obstetrics & Gynecology; ATTEND Obstetrics & Gynecology
PROC: 10D00Z1 Extraction of Products of Conception, Low, Open Approach (ICD-10-PCS; principal; 2019-07-13 18:44)
DX: O34.211 Maternal care for low transverse scar from previous cesarean delivery (principal); D62 Acute posthemorrhagic anemia; Z37.0 Single live birth; Z3A.35 35 weeks gestation of pregnancy; O76 Abnormality in fetal heart rate and rhythm complicating labor and delivery; O90.81 Anemia of the puerperium; Z23 Encounter for immunization
CPT/HCPCS: 36415; 85025; 86850; 86900; 86901; 94664; 99212

== ENCOUNTER → 2020-11-13 | Outpatient (CLI) | payer BC ==
[~2020-11-13] MED LIST changes: +IBUP-844 PO
--- NOTE | 2020-11-13 16:39 | Diagnostic Imaging Report ---
INDICATION: patient, survey. TECHNIQUE: Multiple real-time grayscale images were obtained over the gravid uterus. COMPARISON: None during this . FINDINGS: A single live intrauterine fetus is seen measuring 20 weeks 5 days by composite measurements with sonographic EDC of 03/28/2021. Fetus is in transverse orientation. Placenta is posterior with no evidence of previa. Cervical length is 7.5 cm. Distance from the tip of the placenta to the internal cervical os was 3.4 cm. heart rate is 158 BPM. There is no evidence of subchorionic bleed. survey demonstrates kidneys and bladder to be normal. stomach and four-chamber heart view are normal. Intracranial ventricles are normal. The spine appears unremarkable. Three-vessel cord and cord insertion appear unremarkable. Maternal adnexa were not well seen but there was no free fluid. Biometrical measurements are as follows: Biparietal 4.86 cm, age 20 weeks 5 days. Head circumference 18.09 cm, age 20 weeks 4 days. Abdominal circumference 15.20 cm, age 20 weeks 3 days. Femur length 3.44 cm, age 20 weeks 6 days. Sonographic estimate age: 20 weeks 5 days. Sonographic estimated date of delivery: 03/28/2021. Estimated Weight: 365 gm (+/- 53 gm). LMP percentile: 63%. heart rate: 158 beats per minute. number: 1 of 1. IMPRESSION: Single live intrauterine fetus measuring 20 weeks 5 days in size. There is no sonographically detectable abnormality. Dictated by: Dictated on workstation # [id number]
== END ==
LOC: RAD 14:55
PROVIDERS: ATTEND Obstetrics & Gynecology
DX: Z34.02 Encounter for supervision of normal first pregnancy, second trimester (principal); Z3A.20 20 weeks gestation of pregnancy
CPT/HCPCS: 76805

== ENCOUNTER 2020-12-09 12:25 | Outpatient (CLI) | payer BC ==
[~2020-12-09] VITALS: Ht 165.1 cm; Wt 71.0 kg
[2020-12-09 12:30] VITALS: BP 105/59
[2020-12-09 12:52] LABS: BILIRUBIN,URINE NEGATIVE (NEGATIVE); CLARITY,URINE CLEAR; COLOR,URINE YELLOW; GLUCOSE, URINE (UA) NEGATIVE (NEGATIVE); KETONES,URINE NEGATIVE (NEGATIVE); LEUKOCYTE ESTERASE ,URINE NEGATIVE (NEGATIVE); NITRITE,URINE NEGATIVE (NEGATIVE); PH,URINE 7.5 (5-9); PROTEIN,URINE NEGATIVE (NEGATIVE)
[2020-12-09 13:02] LABS: BACTERIA,URINE NEGATIVE /HPF; RBC,URINE 0-2 /HPF; SQUAMOUS EPITHELIAL CELL,UR 0-2 /HPF
[2020-12-09 13:03] LABS: AMORPHOUS SEDIMENT,UR MOD AMOR PHOSPHATE /LPF
[2020-12-09] MEDS ORDERED: BETAMETHASONE ACE/NA PHOS 6 MG/ML (CELESTONE SOLUSPAN) IM SCH (14:00)
[2020-12-09 14:38] LABS: BASOPHILS % (AUTO) 0 % (0-10); EOSINOPHILS % (AUTO) 0 % (0-10); HEMATOCRIT 36 % (35-52); HEMOGLOBIN 12.3 g/dL (11.5-16.0); LYMPHOCYTES # (AUTO) 1.7 10^3/uL (1.0-4.0); LYMPHOCYTES % (AUTO) 18 % (12-44); MEAN CORPUSCULAR HEMOGLOBIN 32 pg (25-34); MEAN CORPUSCULAR HGB CONC 34 g/dL (32-36); MEAN CORPUSCULAR VOLUME 93 fL (80-99); MEAN PLATELET VOLUME 11.1 fL (9.0-12.2); MONOCYTES # (AUTO) 0.4 10^3/uL (0.0-1.0); MONOCYTES % (AUTO) 5 % (0-12); NEUTROPHILS # (AUTO) 7.1 10^3/uL (1.8-7.8); NEUTROPHILS % (AUTO) 77 % (42-75); PLATELET COUNT 182 10^3/uL (130-400); WHITE BLOOD COUNT 9.3 10^3/uL (4.3-11.0)
--- NOTE | 2020-12-09 14:44 | Diagnostic Imaging Report ---
EXAMINATION: ultrasound limited. INDICATION: Vaginal bleeding. The previous ultrasound exam performed on 11/13/2020 noted a single live fetus of approximately 20 weeks 5 days +/- 1 week. On this exam the fetus is again visualized. The fetus is in transverse presentation with the head on maternal right. heart motion was noted and a rate of 156 BPM was recorded. A survey was not performed. The growth parameters were not obtained either. The prior exam did note a posterior placenta but failed to show any sign of a previa. I have reviewed the previous exam and I agree with the observation that there is no previa. However on this study there now appears to be a complete previa. The amniotic fluid volume is within normal limits. The cervix was identified and measures 7.3 cm in length. IMPRESSION: 1. There is a single live fetus of approximately 24 weeks gestation +/- 2 weeks. The EDC remains 03/28/2021. 2. There now appears to be a complete posterior placenta previa. The placenta seems to be intact however. 3. survey was not performed and the growth parameters were not measured. 4. These results were discussed with Ania at Dr. Morton's office. Dictated by: Dictated on workstation # [id number]
[2020-12-09 15:30] VITALS: BP 124/70
--- NOTE | 2020-12-09 15:52 | OB Triage Report ---
Standard Progress Note Progress Notes/Assess & Plan Date Seen by a Provider: Dec 09, 2020 Time Seen by a Provider: 13:30 Expected Date of Delivery: Dec 09, 2020 VIKAS BARTLETT DO Dec 09, 2020 15:52
--- NOTE | 2020-12-09 15:57 | Discharge Inst-Women's Service ---
Discharge Inst-Women's Serv Depart Medication/Instructions New, Converted or Re-Newed RX: Other Instructions Be able to return to the hospital within 20 minutes Nothing in the vagina Be able to maintain modified bed rest at home. Understand the risks entailed by outpatient management. Have an adult ladies suit operator available 24 hours/day who can immediately transport you to the hospital if there is light bleeding or call an ambulance for severe ble eding. Final Diagnosis second trimester bleeding complete placenta previa 24 weeks gestation Problems Reviewed?: Yes Consults/Follow Up Additional Follow Up: Yes Activity Activity: Bedrest Driving Instructions: No Driving/Refer to Dr. LACEY SMOKING: NO SMOKING Nothing Inside Vagina: No Douching, No [place], No Tampons Diet Discharge Diet: No Restrictions Return to The Hospital For: bleeding at all/spotting/heavy bleeding rupture of membranes contractions Symptoms to Report to : Bleeding Excessive, Pain Increased, Fever Over 101 Degrees F, Vaginal Bleeding Increase, Vaginal Discharge Foul For Any Problems or Questions: Contact Your Physician, Go to Emergency Room Skin/Wound Care Bathing Instructions: VIKAS Ramirez DO Dec 09, 2020 15:57
[2020-12-09 18:44] VITALS: BP 124/70
== END 2020-12-09 16:20 | disposition home or self-care (01) ==
LOC: WSo 12:25 → LDRP 12:27 → WSo 16:20
PROVIDERS: ATTEND Obstetrics & Gynecology
DX: O46.92 Antepartum hemorrhage, unspecified, second trimester (principal); Z3A.24 24 weeks gestation of pregnancy
CPT/HCPCS: 76815; 81000; 85025; 96372; G0463; 36415; 99214

== ENCOUNTER 2020-12-10 15:27 | Outpatient (CLI) | payer BC ==
[2020-12-10] MEDS ORDERED: BETAMETHASONE ACE/NA PHOS 6 MG/ML (CELESTONE SOLUSPAN) IM SCH (15:45)
== END 2020-12-10 16:05 | disposition home or self-care (01) ==
LOC: WSo 15:27
PROVIDERS: ATTEND Obstetrics & Gynecology
DX: O44.00 Complete placenta previa NOS or without hemorrhage, unspecified trimester (principal); Z3A.00 Weeks of gestation of pregnancy not specified
CPT/HCPCS: 96372

== ENCOUNTER 2021-01-25 02:58 | Inpatient (IN) | payer BC ==
[2021-01-25] VITALS (21 sets, daily range): BP systolic 92–119; BP diastolic 53–92
[~2021-01-25] VITALS: Ht 165.1 cm; Wt 74.1 kg
[2021-01-25 03:30] LABS: CLARITY,URINE SL CLOUDY; COLOR,URINE RED; GLUCOSE, URINE (UA) NEGATIVE (NEGATIVE); KETONES,URINE NEGATIVE (NEGATIVE); LEUKOCYTE ESTERASE ,URINE 2+ (NEGATIVE); NITRITE,URINE POSITIVE (NEGATIVE); PH,URINE 7.5 (5-9); PROTEIN,URINE 3+ (NEGATIVE)
[2021-01-25] MEDS ORDERED: AMPICILLIN FOR IV USE 2,000 MG in WATER (STERILE) FOR INJECTION 14.8 ML IV ONE (03:30)
[2021-01-25] MEDS ORDERED: NS IV 500 ML 500 ML IV SCH (03:30)
[2021-01-25] MEDS ORDERED: CALCIUM GLUC. 10% 4.65 MEQ/10 ML VIAL IV PRN (03:30)
[2021-01-25] MEDS ORDERED: MAGNESIUM 2 GM/50 ML IVPB 2 GM in MAGNESIUM 4 GM/100 ML IVPB 100 ML IV ONE (03:30)
[2021-01-25 03:35] LABS: BACTERIA,URINE FEW /HPF; BILIRUBIN,URINE 1+ (NEGATIVE); RBC,URINE TNTC /HPF
[2021-01-25] MEDS ORDERED: D5 LR IV SOLUTION 1,000 ML IV ONE (03:39)
[2021-01-25] MEDS ORDERED: MAGNESIUM SULFATE DRIP 500 ML IV ONE (03:39)
[2021-01-25] MEDS ORDERED: WATER (STERILE) FOR INJECTION 10 ML ONE ×2 (03:47→03:50)
[2021-01-25] MEDS ORDERED: MAGNESIUM 4 GM/100 ML IVPB 100 ML IV ONE (03:48)
[2021-01-25] MEDS ORDERED: MAGNESIUM 2 GM/50 ML IVPB 50 ML IV ONE (03:48)
[2021-01-25] MEDS: D5 LR IV SOLUTION 1,000 ML IV SCH ×2 (03:53→11:40)
[2021-01-25] MEDS ORDERED: MAGNESIUM SULFATE DRIP 500 ML IV SCH (04:00)
[2021-01-25 04:06] LABS: BASOPHILS % (AUTO) 0 % (0-10); EOSINOPHILS % (AUTO) 0 % (0-10); HEMATOCRIT 33 % (35-52); HEMOGLOBIN 11.2 g/dL (11.5-16.0); LYMPHOCYTES # (AUTO) 1.8 10^3/uL (1.0-4.0); LYMPHOCYTES % (AUTO) 10 % (12-44); MEAN CORPUSCULAR HEMOGLOBIN 33 pg (25-34); MEAN CORPUSCULAR HGB CONC 34 g/dL (32-36); MEAN CORPUSCULAR VOLUME 95 fL (80-99); MEAN PLATELET VOLUME 11.3 fL (9.0-12.2); MONOCYTES # (AUTO) 1.1 10^3/uL (0.0-1.0); MONOCYTES % (AUTO) 6 % (0-12); NEUTROPHILS # (AUTO) 15.5 10^3/uL (1.8-7.8); NEUTROPHILS % (AUTO) 83 % (42-75); PLATELET COUNT 129 10^3/uL (130-400); WHITE BLOOD COUNT 18.7 10^3/uL (4.3-11.0)
[2021-01-25] MEDS ORDERED: [UNRECOGNIZED DRUG - OTHER] IV ONE (04:43)
[2021-01-25] MEDS ORDERED: OXYTOCIN IV ONE (04:43)
[2021-01-25] MEDS ORDERED: HYDROmorphone 2 MG/ML VIAL (DILAUDID) ONE (05:28)
[2021-01-25] MEDS ORDERED: TETANUS,DIPTH,PERTUSS P/F (BOOSTRIX) 0.5 ML VIAL IM SCH (06:00)
[2021-01-25] MEDS ORDERED: MEASLES,MUMPS,RUBELLA 1 EA INJ SC SCH (06:00)
[2021-01-25] MEDS ORDERED: HYDROcodone/APAP 5 MG/325 MG (LORTAB) TAB PO PRN (06:00)
[2021-01-25] MEDS ORDERED: ONDANSETRON 4 MG/2 ML (SDV) Z0FRAN IVP PRN (06:00)
[2021-01-25] MEDS ORDERED: KETOROLAC 30 MG/ML VIAL IV SCH (06:00)
--- NOTE | 2021-01-25 06:20 | History & Physical-OB ---
OB - Chief Complaint & HPI Date/Time Date of Admission: Date of Admission: Jan 25, 2021 at 03:20 Date seen by a Provider: Jan 25, 2021 Time Seen by a Provider: 03:40 Chief Complaint/History OB-Reason for Admission/Chief: Onset of Labor Hx : 3 Hx Para: 1102 Expected Date of Delivery: Jan 28, 2021 Gestational Age in Weeks: 30 Gestational Age in Days: 5 Indication for : desires repeat , other (vaginal hemorrhage/ labor/complete previa) Other reason for admission: Patient reports a large gush of fluid about 1 am. It was clear. She presented to the hospital at approximately 0320. She has a history of complete previa. She reports two episodes of bleeding over the past week and did not present to the hospital. She was seen 01/15/2021 I was called at 0326 and arrived at the hospital approximately 0332. She arrived at the hospital and had a large amount of fluid consistent with ROM. It was clear. She had soaked a pad. She was yennifer. irregularly, but reports that the contractions have increased since arrival at the hospital. Due to the ROM/labor and complete previa we will prepare for emergency section I did a bedside US revealing the placenta to be right lateral. She was not bleeding initially, and no cervical or vaginal exam was done, but on my exam there were large clots and she had soaked through a chux pad. Due to the possibility of this being a very complex surgery, I contacted trauma surgery for assistance The patient is also well known to Dr. Flores so he was contacted as well. She is 30 weeks 5 days and EDC of 03/31/2021. with history of 2 previous sections. She is consented for emergency section with possibly hysterectomy, possible OIP, This will be done under spinal unless it becomes more emergent. She is consented for transfusion and is typed and crossed x 8 ynits. During our short evaluation, it was determined that this needs to be done under general anesthesia. Contractions are more frequent and she has increased pain and increased bleeding. On my way to the hospital, I had them start ampicillin for GBS prophylaxis and also magnesium sulfate as she was not bleeding on admission and the plan was to stop contractions to stablize for transfer and also to provide neuroprophylaxis. However, this was stopped once I arrived at the hospital and saw the amount of bleeding and the increase in contractions. CBC is pending. she was admitted on 01/15 for an episode of bleeding but was discharged to home by her primary Ob. She had had a previous episode of bleeding and was hospitalized in early December. She received a course of betamethasone in December and then repeated 01/15 as it had been > 1 month since the first course. She had been on strict bedrest and was instructed to return within 20 minutes if ROM, contractions, or bleeding and be hospitalized if further episodes of bleeding until delivery. However, her reports that she had had two episodes of bleeding in the past week and that she was discharged to home after her episode on 01/15/2021. Admission Nurse Assessment Rev: Yes History of Labs O+/- VDRL NR HIV - HBsAg - Rub I GBS unknown Allergies and Home Medications Allergies Coded Allergies: No Known Drug Allergies (Unverified , 02/08/11) Home Medications Docusate Sodium 100 Mg Capsule, 100 MG PO BID PRN for CONSTIPATION-1ST LINE Prescribed by: HUMBERTO FLORES on 07/13/19 1847 Docusate Sodium 100 Mg Capsule, 100 MG PO BID PRN for CONSTIPATION-1ST LINE Prescribed by: HUMBERTO FLORES on 01/26/21 1038 Hydrocodone/Acetaminophen 1 Each Tablet, 1-2 TAB PO Q6H PRN for PAIN-MODERATE (5-7) Prescribed by: HUMBERTO FLORES on 01/26/21 2140 Ibuprofen 800 Mg Tablet, 600 MG PO Q6HR Prescribed by: HUMBERTO FLORES on 01/26/21 1038 Vit W-Ca,Fe,FA(<1 mg) 1 Each Tablet, 1 TAB PO DAILY, (Reported) Patient Home Medication List Home Medication List Reviewed: Yes OB - History Hx of Present Ultrasounds: Normal mid trimester US, Abnormal US findings (placenta previa (complete)) Information Induced Hypertension: No Maternal Gestational Diabetes: No Hemorrhage: No Obstetrical History Hx : 3 Hx Para: 1 Hx # Term Pregnancies: 1 Hx # Pregnancies: 0 Number of Living Children: 2 Hx Termination: No Hx Multiple Gestation: No Hx Ectopic : No Hx Complication: Yes Hx Induced Hypertens: No Hx Maternal Gestational Diabet: No Delivery History Hx Dystocia: Yes Hx Section: Yes Adverse Rxn to Tranfusion: No Patient Past Medical History n/a Social History/Family History Alcohol Use: Denies Use Recreational Drug Use: No Smoking Cessation: Never smoker 2nd Hand Smoke Exposure: No Immunizations Hepatitis A: No Hepatitis B: No Tetanus Booster (TDap): Less than 5yrs Date of Influenza Vaccine: Jun 05, 2019 Rubella: immune RPR/VDRL: Negative GBS Status: Unknown HBsAG: Negative OB - Admission Exam Physical Exam Heart: Rhythm Normal Lungs: Clear Abdomen: Gravid Extremities: Normal Reflexes: Normal Cervical Dilatation: other (did not examin) Amniotic Fluid: Clear Heart Rate: 130's Accelerations: Accelerations Present Decelerations: No Decelerations Short Term Variability: Present 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: Average (6-25) Labs Laboratory Tests Test 01/25/21 03:15 01/25/21 03:30 01/25/21 06:00 Range/Units Urine Color RED H Urine Clarity SL CLOUDY Urine pH 7.5 5-9 Urine Specific [place] 1.020 1.016-1.022 Urine Protein 3+ H NEGATIVE Urine Glucose (UA) NEGATIVE NEGATIVE Urine Ketones NEGATIVE NEGATIVE Urine Nitrite POSITIVE H NEGATIVE Urine Bilirubin 1+ H NEGATIVE Urine Urobilinogen 1.0 < = 1.0 MG/DL Urine Leukocyte Esterase 2+ H NEGATIVE Urine RBC (Auto) 3+ H NEGATIVE Urine RBC TNTC H /HPF Urine WBC 5-10 H /HPF Urine Crystals NONE /LPF Urine Bacteria FEW H /HPF Urine Casts NONE /LPF Urine Mucus SMALL H /LPF Urine Culture Indicated YES White Blood Count 18.7 H 4.3-11.0 10^3/uL Red Blood Count 3.45 L 3.80-5.11 10^6/uL Hemoglobin 11.2 L 11.5-16.0 g/dL Hematocrit 33 L 35-52 % Mean Corpuscular Volume 95 80-99 fL Mean Corpuscular Hemoglobin 33 25-34 pg Mean Corpuscular Hemoglobin Concent 34 32-36 g/dL Red Cell Distribution Width 13.7 10.0-14.5 % Platelet Count 129 L 130-400 10^3/uL Mean Platelet Volume 11.3 9.0-12.2 fL Immature Granulocyte % (Auto) 1 % Neutrophils (%) (Auto) 83 H 42-75 % Lymphocytes (%) (Auto) 10 L 12-44 % Monocytes (%) (Auto) 6 0-12 % Eosinophils (%) (Auto) 0 0-10 % Basophils (%) (Auto) 0 0-10 % Neutrophils # (Auto) 15.5 H 1.8-7.8 10^3/uL Lymphocytes # (Auto) 1.8 1.0-4.0 10^3/uL Monocytes # (Auto) 1.1 H 0.0-1.0 10^3/uL Eosinophils # (Auto) 0.0 0.0-0.3 10^3/uL Basophils # (Auto) 0.0 0.0-0.1 10^3/uL Immature Granulocyte # (Auto) 0.2 H 0.0-0.1 10^3/uL OB - Assessment/Plan/Diagnosis Assessment Assessment: IUP - , labor, vaginal bleeding Admission Dx 1. labor (30 weeks) 2. third trimester bleeding 3. complete previa 4. previous section x 2 Admission Status: Inpatient Order (span 2 midnights) Reason for Inpatient Admission: section Plan Plan: Section (due to high risk of hemorrhage and cesareean hysterectomy, this will be performed in the main OR. Peds will be here and [facility] has been contacted. She is not stable to be transferred with risk of hemorrhage and delivery on the way. Proper consents are signed and we will prepare for emergency LTCS, Possibley TSH and OIP. She is NPO. Will use prophylactic antiboitcs and sCDs. Risks of bleeding injury to other organs including ureter, bladder, bowel, infection. She is at great risk for hemorrhage and also hysterectomy. This surgery is life threatening and we have discussed this. In addition, there is risk of demise. the baby will be transferred as soon as he can be stabilized after delivery. ) VIKAS BARTLETT DO Jan 25, 2021 06:20
--- NOTE | 2021-01-25 06:48 | Anesthesia-General Post-Op ---
General Patient Condition Mental Status/LOC: Same as Preop Cardiovascular: Satisfactory Nausea/Vomiting: Absent Respiratory: Satisfactory Pain: Controlled Complications: Absent Post Op Complications Complications None Follow Up Care/Instructions Patient Instructions None needed. Anesthesia/Patient Condition Patient Condition Patient is doing well, no complaints, stable vital signs, no apparent adverse anesthesia problems. No complications reported per nursing. KINA LIU CRNA Jan 25, 2021 06:48
[2021-01-25] MEDS: CATHETER FLUSH 10 ML SYR IV SCH ×3 (06:55→20:11)
[2021-01-25 06:56] LABS: HEMATOCRIT 26 % (35-52); HEMOGLOBIN 8.8 g/dL (11.5-16.0); MEAN CORPUSCULAR HEMOGLOBIN 33 pg (25-34); MEAN CORPUSCULAR HGB CONC 34 g/dL (32-36); MEAN CORPUSCULAR VOLUME 98 fL (80-99); MEAN PLATELET VOLUME 11.2 fL (9.0-12.2); PLATELET COUNT 115 10^3/uL (130-400); WHITE BLOOD COUNT 22.1 10^3/uL (4.3-11.0)
[2021-01-25] MEDS: OXYTOCIN PRE-MIX DRIP 500 ML IV SCH ×2 (07:24→16:27)
[2021-01-25] MEDS: HYDROmorphone 2 MG/ML VIAL (DILAUDID) IV PRN ×2 (07:24→10:23)
[2021-01-25 07:27] LABS: FIBRIN DEGRADATION PRODUCTS 3.53 UG/ML (0.00-0.49); INR 1.1 (0.8-1.4); PROTHROMBIN TIME PATIENT 14.3 SEC (12.2-14.7)
--- NOTE | 2021-01-25 08:06 | Diagnostic Imaging Report ---
INDICATION: Postop FINDINGS: No suspicious retained opaque foreign body within the central pelvis or left flank IMPRESSION: The visualized radiographic field showed no suspicious opaque retained foreign body. Dictated by: Dictated on workstation # [id number]
[2021-01-25] MEDS: ACETAMINOPHEN 500 MG TAB (TYLENOL) PO SCH ×3 (08:26→23:48)
[2021-01-25] MEDS: ceFAZolin INJECTION 1,000 MG in WATER (STERILE) FOR INJECTION 10 ML IV SCH ×3 (11:39→20:11)
[2021-01-25] MEDS: DOCUSATE SODIUM 100 MG (COLACE) CAP PO SCH ×2 (11:39→19:26)
[2021-01-25 12:06] LABS: HEMOGLOBIN 8.3 g/dL (11.5-16.0)
[2021-01-25] MEDS: fentaNYL INJ 100 MCG/2 ML AMP IVP PRN ×2 (13:30→23:48)
[2021-01-25] MEDS ORDERED: ZOLPIDEM 5 MG (AMBIEN) TAB PO ONE (21:45)
[2021-01-26] MEDS ORDERED: IBUPROFEN 600 MG (MOTRIN) TAB PO SCH
[2021-01-26] MEDS: ceFAZolin INJECTION 1,000 MG in WATER (STERILE) FOR INJECTION 10 ML IV SCH (04:32)
[2021-01-26 05:50] VITALS: BP 99/58
[2021-01-26 06:09] LABS: BASOPHILS % (AUTO) 0 % (0-10); EOSINOPHILS % (AUTO) 0 % (0-10); HEMATOCRIT 24 % (35-52); HEMOGLOBIN 7.7 g/dL (11.5-16.0); LYMPHOCYTES # (AUTO) 1.7 10^3/uL (1.0-4.0); LYMPHOCYTES % (AUTO) 10 % (12-44); MEAN CORPUSCULAR HEMOGLOBIN 31 pg (25-34); MEAN CORPUSCULAR HGB CONC 33 g/dL (32-36); MEAN CORPUSCULAR VOLUME 96 fL (80-99); MEAN PLATELET VOLUME 10.7 fL (9.0-12.2); MONOCYTES % (AUTO) 6 % (0-12); NEUTROPHILS # (AUTO) 13.7 10^3/uL (1.8-7.8); NEUTROPHILS % (AUTO) 82 % (42-75); PLATELET COUNT 165 10^3/uL (130-400); WHITE BLOOD COUNT 16.7 10^3/uL (4.3-11.0)
[2021-01-26 06:38] LABS: FIBRIN DEGRADATION PRODUCTS 1.12 UG/ML (0.00-0.49); INR 1.1 (0.8-1.4); PROTHROMBIN TIME PATIENT 14.1 SEC (12.2-14.7)
[2021-01-26 07:30] VITALS: BP 101/62
[2021-01-26] MEDS ORDERED: IRON SUCROSE 200 MG/10 ML (VENOFER) VIAL IV ONE (07:30)
--- NOTE | 2021-01-26 07:52 | Progress Note ---
Standard Progress Note Progress Notes/Assess & Plan Date Seen by a Provider: Jan 26, 2021 Time Seen by a Provider: 00:00 Progress/Assessment & Plan Her post operative Hgb was 4.8 and Plts were 75,000. However, this was inadvertantly drawn from the same arm above the IV. Repeat was 8.8 and plts 115,000. Toradol and Ibuprofen were held due to low plt count. In reviewing her previous Ob records, she did have low plts at her 28 week labs suggesting that she has gestational thrombocytopenia. Her plts this am are wnl and H/H stable. She has had good UO and richardson was removed last night. Has been ambulating. Will replace Iron with IV iron as she is stable and not a candidate for transfusion. She will be going to the NICU at [place] after discharge and the IV iron will help with iron replacement. Pain was not controlled well most of the day yesterday but better last night with tylenol and 10 mg oxycodone every 4 hours prn. With prn IV dilaudid and fentanyl. Will start ibuprofen today. as plts are wnl. VIKAS BARTLETT DO Jan 26, 2021 07:52
[2021-01-26] MEDS: ACETAMINOPHEN 500 MG TAB (TYLENOL) PO SCH ×2 (08:19→18:14)
[2021-01-26] MEDS: DOCUSATE SODIUM 100 MG (COLACE) CAP PO SCH ×2 (08:19→19:52)
--- NOTE | 2021-01-26 10:35 | Postpartum Progress Note ---
Note Note Day # 1 Subjective: Patient is without complaints. Ambulating, voiding. Tolerating a regular diet without nausea or vomiting. Normal lochia. Pain is well controlled with oral pain medications. Objective: Physical Exam: General - Alert and oriented, no apparent distress Abdomen - Soft, appropriately tender to palpation, non-distended, fundus firm at umbilicus Extremities - no edema, negative Barbra's bilaterally Incision- c/d/i Assessment: POD 1 RLTCS Acute blood loss anemia delivery at 30 weeks due to hemorrhage from placenta previa Plan: Routine care. Encourage breast feeding. Encourage ambulation. Ferrous sulfate supplementation. Plan for discharge tomorrow Vitals - Labs Vital Signs - I&O Vital Signs Date Time Temp Pulse Resp B/P (MAP) Pulse Ox O2 Delivery O2 Flow Rate FiO2 01/26/21 07:30 36.2 115 18 101/62 (75) 97 Room Air 01/26/21 05:50 37.0 109 18 99/58 (72) 97 Room Air 01/25/21 23:46 37.6 110 18 119/64 (82) 96 Room Air 01/25/21 19:30 37.1 103 18 96/57 (70) 97 Room Air 01/25/21 15:05 37.2 110 18 106/66 (79) 96 Room Air 01/25/21 11:42 37.6 110 18 102/65 (77) 97 Room Air I & O 01/26/21 07:00 Intake Total 4660 ml Output Total 5050 ml Balance -390 ml Labs Laboratory Tests 01/25/21 11:56: Hemoglobin 8.3L, Hematocrit 24L 01/26/21 05:43: Hemoglobin 7.7L, Hematocrit 24L, White Blood Count 16.7H, Red Blood Count 2.46L, Mean Corpuscular Volume 96, Mean Corpuscular Hemoglobin 31, Mean Corpuscular Hemoglobin Concent 33, Red Cell Distribution Width 13.6, Platelet Count 165, Mean Platelet Volume 10.7, Immature Granulocyte % (Auto) 1, Neutrophils (%) (Auto) 82H, Lymphocytes (%) (Auto) 10L, Monocytes (%) (Auto) 6, Eosinophils (%) (Auto) 0, Basophils (%) (Auto) 0, Neutrophils # (Auto) 13.7H, Lymphocytes # (Auto) 1.7, Monocytes # (Auto) 1.0, Eosinophils # (Auto) 0.0, Basophils # (Auto) 0.0, Immature Granulocyte # (Auto) 0.2H, Prothrombin Time 14.1, INR Comment 1.1, Activated Partial Thromboplast Time 36H, Fibrinogen 634H, D-Dimer 1.12H HUMBERTO FLORES DO Jan 26, 2021 10:35
--- NOTE | 2021-01-26 10:36 | Discharge Inst-Women's Service ---
Discharge Inst-Women's Serv Depart Medication/Instructions New, Converted or Re-Newed RX: RX on Chart Problems Reviewed?: Yes Consults/Follow Up Additional Follow Up: Yes Orders/Referrals Dr. Morton in 7-10 days and in 6 weeks Activity Activity: Activity as Tolerated Driving Instructions: No Driving for 1 Week NO SMOKING: NO SMOKING Nothing Inside Vagina: No Douching, No [place], No Tampons Diet Discharge Diet: No Restrictions Symptoms to Report to : Bleeding Excessive, Pain Increased, Fever Over 101 Degrees F, Vaginal Bleeding Increase, Questions/Concerns For Any Problems or Questions: Contact Your Physician Skin/Wound Care Infection Signs and Symptoms: Increased Redness, Foul Odor of Wound, Increased Drainage, Skin Itchy or Has a Rash, Increased Swelling, Temperature Above 101 F Operative Area Clean and Dry: Keep Incision Clean/Dry Stitches/Reid/Dermabond: Dermabond, Care of Stitches Bathing Instructions: HUMBERTO Sheth DO Jan 26, 2021 10:36
[2021-01-26] MEDS ORDERED: ACHD5005 PO (10:38)
[2021-01-26] MEDS ORDERED: IBUP-1780 PO (10:38)
[2021-01-26] MEDS ORDERED: DCS100C PO (10:38)
[2021-01-26] MEDS: IBUPROFEN 800 MG (MOTRIN) TAB PO SCH ×2 (11:29→18:14)
[2021-01-26 11:30] VITALS: BP 96/53
--- NOTE | 2021-01-26 16:55 | OPERATIVE REPORT ---
DATE OF SERVICE: PREOPERATIVE DIAGNOSES: 1. A 30-year-old G3, P2 at 30 weeks and 5 days gestation. 2. Active labor. 3. Placenta previa. 4. Heavy vaginal bleeding. POSTOPERATIVE DIAGNOSES: 1. A 30-year-old G3, P2 at 30 weeks and 5 days gestation. 2. Active labor. 3. Placenta previa. 4. Heavy vaginal bleeding. 5. Right transverse presentation. PROCEDURE PERFORMED: Repeat low transverse section. SURGEON: Fernando Flores DO GROUP CAPTAIN: Dr. Mary Campbell. ESTIMATED BLOOD LOSS: 1000 mL. URINE OUTPUT: 125 mL clear with slight blood tinge at the end of procedure. FLUIDS: 2000 mL lactated Ringer's solution. FINDINGS: A live male . Weight and Apgars pending. Scarring consistent with previous ; otherwise, grossly normal appearing fallopian tubes and ovaries. INDICATIONS FOR PROCEDURE: This patient presented to the labor and delivery unit with active bleeding and contractions. She was evaluated by my partner, Dr. Campbell. At that time, they decided to proceed with delivery. Magnesium infusion was started, and she was urgently taken to the operating room where she was urgently prepped and draped prior to the preoperative lap and sponge count being performed and instrument count being performed. I presented as they were getting the patient already. She had already been counseled as far as risk of the procedure and consent already had been obtained. I was able to speak with the father prior to the procedure very shortly to allow for any further questions, he seemed to have a good understanding of the procedure and why we were proceeding. I then proceeded to the operating room, the patient was prepped and draped in normal sterile fashion. OPERATIVE REPORT IN DETAIL: Once the patient was prepped and draped and anesthesia notified us of airway access, I then make a Pfannenstiel skin incision with a knife and carried down to the underlying fascia. Using the knife, I then extended the fascial incision using blunt traction. The rectus muscles were using blunt traction. The peritoneum was entered using blunt dissection and extended using blunt traction. I then placed an Cesar ring retractor in the peritoneal incision, which offers excellent lateral sidewall retraction. I identified the lower uterine segment, which was found to be thinned out and make a low transverse incision to the vesicouterine peritoneum until I am able to visualize the membranes, at which point, I extended uterine incision laterally with blunt traction. Amniotomy was then performed using Allis clamp. Clear fluid was noted. Infant was found in the right transverse presentation. The infant's head was brought down to the incision, where it delivered through incision. Nares and oropharynx were bulb suctioned. The cord was doubly clamped and cut and infant was handed off to waiting nurses and physician in attendance. Cord blood was collected, 3-vessel cord with intact placenta was delivered spontaneously thereafter. IV Pitocin was initiated to facilitate uterine contraction. Uterine fundus was firmer with bimanual massage. Uterus was then exteriorized and cleared of all endometrial clots and debris. I then proceeded with closing the uterine segment using 0 Vicryl suture in running locked fashion. Second layer of imbricating 0 Vicryl suture was placed. Excellent hemostasis was noted after doing this. I do have to place few separate 3-0 Vicryl sutures in a [id number] fashion to stop some bleeding along the suture margin; however, after that, I placed the uterus back in the pelvis, copiously irrigated the pelvis using normal saline. Once again, there was no active bleeding noted from any of my dissection planes. I placed Surgicel hemostatic agent over the incisions as well as cover that with Interceed. I then removed the Cesar ring retractor and then proceeded with closing the peritoneum using 3-0 Vicryl suture in running fashion. Rectus muscle reapproximated using 3-0 Vicryl suture in interrupted fashion. The fascia was reapproximated using 0 Vicryl suture in running fashion. Subcutaneous tissue was reapproximated with the skin using 4-0 Monocryl interrupted subcuticular stitches. Dermabond was applied to incision and sterile dressing with adhesive white tape. The patient tolerated the procedure well and sent to recovery in stable condition. Lap and sponge counts were correct at the end of the procedure. Instrument counts correct as well. Two grams of Ancef given preoperatively for infection prophylaxis. Postoperative x-ray was performed and no evidence of retained sponge or instrument. The patient then taken to the recovery area in stable condition. Job ID: [id number] DocumentID: [id number] Dictated Date: 01/25/2021 05:56:26 Vrt Mechanic Date: 01/25/2021 06:24:42 Dictated By: FERNANDO FLORES DO
[2021-01-26 18:10] VITALS: BP 109/60
[2021-01-26 18:15] VITALS: BP 109/60
[2021-01-26 20:16] VITALS: BP 101/59
[2021-01-27] MEDS ORDERED: IBUPROFEN 600 MG (MOTRIN) TAB PO ONE (00:24)
[2021-01-27] MEDS: IBUPROFEN 800 MG (MOTRIN) TAB PO SCH (00:25)
[2021-01-27 02:00] VITALS: BP 101/64
[2021-01-27] MEDS: ACETAMINOPHEN 500 MG TAB (TYLENOL) PO SCH (05:33)
[2021-01-27 08:15] VITALS: BP 115/64
[2021-01-27] MEDS: DOCUSATE SODIUM 100 MG (COLACE) CAP PO SCH (08:38)
[2021-01-27] MEDS ORDERED: IBUPROFEN 600 MG (MOTRIN) TAB PO SCH (08:46)
--- NOTE | 2021-01-27 11:11 | Postpartum Progress Note ---
Note Note Day # 2 Subjective: Patient is without complaints. Ambulating, voiding. Tolerating a regular diet without nausea or vomiting. Normal lochia. Pain is well controlled with oral pain medications. Objective: Physical Exam: General - Alert and oriented, no apparent distress Abdomen - Soft, appropriately tender to palpation, non-distended, fundus firm at umbilicus Extremities - no edema, negative Barbra's bilaterally Assessment: day #2 Acute blood loss anemia delivery at 30wks d/t hemorrhage from placenta previa Plan: Routine care. Encourage breast feeding. Encourage ambulation. Ferrous sulfate supplementation. Plan for discharge today RTC in 1wk for incision check Vitals - Labs Vital Signs - I&O Vital Signs Date Time Temp Pulse Resp B/P (MAP) Pulse Ox O2 Delivery O2 Flow Rate FiO2 01/27/21 08:15 36.8 95 18 115/64 (81) 97 Room Air 01/27/21 02:00 36.0 104 18 101/64 (76) Room Air 01/26/21 20:16 36.0 112 18 101/59 (73) 98 Room Air 01/26/21 18:15 36.1 109 18 109/60 (76) Room Air 01/26/21 18:10 36.1 109 18 109/60 (76) Room Air 01/26/21 11:30 36.1 118 18 96/53 (67) Room Air Labs Microbiology 01/25/21 Urine Culture - Final, Complete 3 or more isolates FATIMAH PACHECO H[employer] W[employer] CUTTER Jan 27, 2021 11:11
[2021-01-27 12:30] VITALS: BP 115/64
== END 2021-01-27 12:30 | disposition home or self-care (01) | DRG 786 ==
LOC: LDRP 02:58 → WSo 02:58 → LDRP 03:20
PROVIDERS: ADMIT Obstetrics & Gynecology; ATTEND Obstetrics & Gynecology
PROC: 10D00Z1 Extraction of Products of Conception, Low, Open Approach (ICD-10-PCS; principal; 2021-01-25 04:38)
DX: O60.14X0 Preterm labor third trimester with preterm delivery third trimester, not applicable or unspecified (principal); O44.13 Complete placenta previa with hemorrhage, third trimester; D62 Acute posthemorrhagic anemia; O34.211 Maternal care for low transverse scar from previous cesarean delivery; O90.81 Anemia of the puerperium; Z3A.30 30 weeks gestation of pregnancy; Z37.0 Single live birth
CPT/HCPCS: 36415; 74018; 81000; 85014; 85018; 85025; 85027; 85379; 85384; 85610; 85730; 86850; 86900; 86901; 86920; 87088; 88307; 90715; 94664; 99212